=== PATIENT | male | born 1950 | race Caucasian/White ===

== ENCOUNTER 2022-05-24 16:04 | Inpatient (IN) | payer OTHER, SELFPAY ==
--- NOTE | ~2022-05-24 | CT_ITS ---
EXAMINATION: CT ABDOMEN AND PELVIS WITHOUT CONTRAST CLINICAL INFORMATION: Abdominal pain. Question is medial COMPARISON: None TECHNIQUE: Multidetector volumetric imaging was performed from the superior aspect of the liver through the pubic symphysis. Sagittal and coronal reformatted images were obtained on the technologist's workstation. This CT examination was performed using dose optimization techniques as appropriate, variously including the following: *Automated exposure control *Adjustment of mA and/or kV according to patient size (this includes techniques or standardized protocols for targeted exams where dose is matched to indication/reason for exam; i.e. extremities or head) *Use of iterative reconstruction technique DLP: 688 mGy-cm FINDINGS: LUNG BASES: The lung bases are clear. The heart size is normal. LIVER, GALLBLADDER, AND BILIARY TREE: The liver is normal in size, shape, and attenuation. No focal hepatic lesion or biliary ductal dilatation is present. The gallbladder is not visualized likely removed. There are postsurgical changes in the gloria hepatis. PANCREAS: Unremarkable. SPLEEN: Unremarkable. ADRENAL GLANDS: Unremarkable. KIDNEYS AND URETERS: The left kidney is small measuring 7.6 cm but normal cortex. The right kidney is 11 cm in length. There is normal cortical thickness. No radiopaque calculi are hydronephrosis seen. Mild bilateral perinephric stranding is seen. BLADDER: The bladder is contracted GASTROINTESTINAL TRACT: There is scattered stool and gas seen throughout the colon with moderate soft tissue mass involving the ascending colon and pericolic fat stranding however limited due to lack of IV contrast. In the right paracolic gutter there is a soft tissue density measuring 2.7 x 2.2 cm and 3.9 Hounsfield units likely a small seroma from previous intervention there are punctate small lymph nodes seen in the right paracolic gutter. The small bowel loops are prominent with air-fluid levels likely secondary low-grade obstruction at the ileocecal junction and the proximal ascending colon. No free air or free fluid seen. ABDOMINAL WALL: There is midline and para midline anterior epigastric abdominal wall hernia containing fat. LYMPH NODES: There are numerous mesenteric lymph nodes seen in right paracolic region the largest soft tissue mass/lymph node measures 3.3 x 2.1 cm axial image 44/3 and slightly smaller lymph node measures 1.8 cm. VASCULAR: Unremarkable. PELVIC VISCERA: Unremarkable. OSSEOUS STRUCTURES: There is a hardware along the right acetabulum from previous fracture repair. No aggressive lytic or sclerotic process seen. CT/CT abdomen pelvis wo IV con IMPRESSION: Postsurgical changes in the right gloria hepatis and right diaphragmatic alfredo likely from lymph node dissection. Correlate with clinical exam. The gallbladder is not visualized likely removed.. There is a moderate size mass or filling defect involving a long segment of right colon with paracolic lymphadenopathy and soft tissue mass. There is a focal paracolic collection likely a seroma from old intervention. The exam is limited due to lack of oral and IV contrast. Fleischner guidelines were followed.
--- NOTE | ~2022-05-24 | FL_ITS ---
PROCEDURE: XR BARIUM ENEMA CLINICAL INFORMATION: Mild obstruction. COMPARISON: None TECHNIQUE: A KUB was obtained. Subsequently a double contrast barium enema was performed retrogradely following insertion of a balloon inflated rectal catheter. FINDINGS: On KUB there are multiple dilated small bowel loops with air-fluid levels. No free air suspected. There are postsurgical mildred in the epigastric region from previous intervention. Following retrograde administration of barium there is good distention of the entire colon to the level of cecum with a few scattered diverticuli seen in descending and ascending colon. There is a long segment of mural thickening and mucosal irregularity/apple core lesion involving the proximal ascending colon just beyond the cecum suspicious and suggestive of tumor. There is proximal small bowel dilation likely low-grade obstruction. No retrograde opacification of terminal ileum or appendix seen. FLUOROSCOPY TIME: 3.1 minutes DOSE AREA PRODUCT: 167 uGy-m2 (microgray-meter squared) FL/FL barium enema IMPRESSION: Abnormal long segment of proximal ascending colon suggestive of underlying lesion with moderate narrowing and small bowel distention secondary to obstruction. Recommend endoscopy and surgical evaluation. Scattered colonic diverticulosis without diverticulitis.
--- NOTE | ~2022-05-24 | XR_ITS ---
EXAMINATION: XR ABDOMEN KUB CLINICAL INDICATION: Worst abdominal pain COMPARISON: CT from earlier today TECHNIQUE: AP view of the abdomen. FINDINGS: There are multiple mildly to moderately dilated gas-filled loops of small bowel throughout the abdomen, with only scattered gas in the colon, suspicious for a degree of small bowel obstruction. Numerous clips are noted in the upper right abdomen. No gross evidence of free air though evaluation is limited with supine positioning. Plate and screw fixation hardware and additional screw noted in the right pelvis. XR/XR KUB IMPRESSION: Multiple mildly to moderately dilated gas-filled loops of small bowel, suspicious for a degree of small bowel obstruction.
--- NOTE | ~2022-05-24 | XR_ITS ---
EXAMINATION: XR CHEST CLINICAL INFORMATION: Question pneumonia COMPARISON: None TECHNIQUE: Frontal view of the chest was obtained. FINDINGS: The lungs are clear. No airspace consolidation, pleural effusion, or pneumothorax. The cardiomediastinal silhouette is within normal limits. No acute osseous injury. Chronic/healed posterolateral right eighth and ninth rib fracture deformities noted. XR/XR chest 1V IMPRESSION: No acute pulmonary disease.
[2022-05-24 16:15] VITALS: BP 156/87; PULSE 87; RESP 16; TEMP 36.8; O2SAT 95; BMI 28.8
--- NOTE | 2022-05-24 16:23 | ED.ABDPAIN ---
HPI - Abdominal Pain General Chief Complaint: Abdominal Pain Stated Complaint: ABD PAIN AND SWELLING PER EMS Time Seen by Provider: 05/24/22 16:21 Source: patient Mode of arrival: EMS Limitations: no limitations History of Present Illness HPI narrative: Patient is status post liver transplant 7 years ago come here for diffuse abdominal pain and swelling for last 3 days today had some nausea and vomited once feels bloated no fever no chills no urinary complaints patient had loose bowel today does not feel hungry no fever or chills patient was seen by liver transplant team on 04/29 workup was stable and transplant in good shape. Related Data Home Medications Medication Instructions Recorded Confirmed amlodipine 10 mg tablet 1 tab PO DAILY 05/24/22 05/24/22 dulaglutide 0.75 mg/0.5 mL 0.75 mg subcut MEJIAS@0900 05/24/22 05/24/22 subcutaneous pen injector (Trulicity) ergocalciferol (vitamin D2) 1,250 1 cap PO TH@0900 05/24/22 05/24/22 mcg (50,000 unit) capsule insulin glargine 100 unit/mL (3 24 unit subcut BID 05/24/22 05/24/22 mL) subcutaneous pen (Lantus Solostar U-100 Insulin) metoprolol tartrate 25 mg tablet 1 tab PO BID 05/24/22 05/24/22 omeprazole 20 mg capsule,delayed 1 cap PO DAILY@0630 05/24/22 05/24/22 release tacrolimus 1 mg capsule, 1 cap PO BID 05/24/22 05/24/22 immediate-release tamsulosin 0.4 mg capsule 1 cap PO BEDTIME 05/24/22 05/24/22 Allergies Allergy/AdvReac Type Severity Reaction Status Date / Time No Known Allergies Allergy Verified 05/24/22 16:32 Review of Systems Review of Systems Yes all other systems are reviewed and are negative PMFSH Social History Social History Advance Directives: No Advance Directives Information Provided: No Physical Exam ED Vital Signs: Vital Signs - 24 hr 05/24/22 16:15 05/24/22 17:35 05/24/22 19:04 Temperature 98.3 F 98.4 F Pulse Rate 87 87 80 Respiratory Rate 16 16 16 Blood Pressure 156/87 H 129/64 124/65 Pulse Oximetry 95 98 98 Oxygen Delivery Method Room Air Room Air Room Air BMI result Body Mass Index 28.8 Appearance: Alert. Oriented X3. No acute distress. Eyes: PERRLA, No Nystagmus ENT: Pharynx normal. Oral Mucosa moist Neck: Normal inspection. Neck supple. CVS: Normal heart rate and rhythm. Pulses normal. Respiratory: No respiratory distress. Equal air entry bilateral, no wheezing/rales/rhonchi Abdomen: Soft gaseous distended diffuse discomfort no focal tenderness no rebound tenderness Bowel sounds are sluggish, no mass palpable, no CVA tenderness Skin: Skin warm and dry. Normal skin color. Normal skin turgor. Extremities: No lower extremity edema. No calf tenderness Neuro: Oriented X 3. No motor deficit. Medical Decision Making Medical Decision Making [facility] Narrative: . Diffuse abdominal pain with leukocytosis elevated lactic acid level of 2.9 elevated creatinine of 3.05 with nausea and vomiting CT scan the abdomen showed Postsurgical changes in the right gloria hepatis and right diaphragmatic alfredo likely from lymph node dissection. Correlate with clinical exam. The gallbladder is not visualized likely removed.. ? There is a moderate size mass or filling defect involving a long segment of right colon with paracolic lymphadenopathy and soft tissue mass. There is a focal paracolic collection likely a seroma from old intervention. The exam is limited due to lack of oral and IV contrast. Started on IV Zosyn IV fluids were given. Admit for further evaluation by surgery and Medicine Lab Data [facility] Lab Attestation statement: I reviewed the patient's lab results. 05/24/22 16:37 05/24/22 16:37 Labs: Lab Results 05/24/22 05/24/22 05/24/22 Range/Units 16:37 16:37 16:37 WBC 20.4 H (4.8-10.8) X10*3/uL RBC 4.93 (4.60-5.80) X10*6/uL Hgb 14.1 (14.0-18.0) g/dl Hct 42.0 (42.0-52.0) % MCV 85.2 (80.0-98.0) fL MCH 28.6 (27.0-33.0) pg MCHC 33.6 (31.0-36.0) g/dl RDW 13.2 (11.0-16.0) % Plt Count 287 (160-400) X10*3/uL MPV 9.6 (9.4-12.4) fL Immature Gran % (Auto) 0.5 H (0.0-0.4) % Neut % (Auto) 88.7 H (45-73) % Lymph % (Auto) 7.3 L (20-40) % Menard % (Auto) 3.1 (2-11) % Eos % (Auto) 0.2 (0-4) % Baso % (Auto) 0.2 (0-2) % Lymph # (Auto) 1.5 (1.2-4.9) X10*3/uL Menard # (Auto) 0.6 (0.1-1.2) X10*3/uL Eos # (Auto) 0.0 (0.0-0.4) X10*3/uL Baso # (Auto) 0.0 (0.0-0.2) X10*3/uL Abs Immat Gran (auto) 0.11 H (0.00-0.03) X10*3/uL Absolute Neuts (auto) 18.1 H (2.0-8.3) x10*3/uL Absolute Nucleated RBC 0.000 (0.0-0.012) X10*3/uL Nucleated RBC % (auto) 0.0 (0.0-0.2) /100WBC PT 11.0 (10.0-13.1) SEC INR 1.0 (0.9-1.1) Sodium 140 (135-145) mmol/L Potassium 3.8 (3.3-5.1) mmol/L Chloride 106 (96-108) mmol/L Carbon Dioxide 23 (22-29) mmol/L Anion Gap 15 (12-20) BUN 25 H (9-16) mg/dL Creatinine 3.05 H (0.5-1.4) mg/dL Estim Creat Clear Calc 24.0 Estimated GFR 20 Random Glucose 229 H (60-115) mg/dL Lactic Acid (0.5-2.0) mmol/L Lactic Acid F/U @ 2Hr (0.5-2.0) mmol/L Calcium 9.2 (8.4-10.2) mg/dL Magnesium 2.6 (1.6-2.6) mg/dL Total Bilirubin 0.8 (0.0-1.0) mg/dL AST 11 (5-37) U/L ALT 6 (0-40) U/L Alkaline Phosphatase 106 (39-117) U/L Total Protein 7.2 (6.5-8.0) g/dL Albumin 4.0 (3.5-5.0) g/dL Lipase 10 (8-78) U/L COVID-19 (ELLA) (Negative) COVID-19 Clin Com 05/24/22 05/24/22 05/24/22 Range/Units 16:37 16:50 19:03 WBC (4.8-10.8) X10*3/uL RBC (4.60-5.80) X10*6/uL Hgb (14.0-18.0) g/dl Hct (42.0-52.0) % MCV (80.0-98.0) fL MCH (27.0-33.0) pg MCHC (31.0-36.0) g/dl RDW (11.0-16.0) % Plt Count (160-400) X10*3/uL MPV (9.4-12.4) fL Immature Gran % (Auto) (0.0-0.4) % Neut % (Auto) (45-73) % Lymph % (Auto) (20-40) % Menard % (Auto) (2-11) % Eos % (Auto) (0-4) % Baso % (Auto) (0-2) % Lymph # (Auto) (1.2-4.9) X10*3/uL Menard # (Auto) (0.1-1.2) X10*3/uL Eos # (Auto) (0.0-0.4) X10*3/uL Baso # (Auto) (0.0-0.2) X10*3/uL Abs Immat Gran (auto) (0.00-0.03) X10*3/uL Absolute Neuts (auto) (2.0-8.3) x10*3/uL Absolute Nucleated RBC (0.0-0.012) X10*3/uL Nucleated RBC % (auto) (0.0-0.2) /100WBC PT (10.0-13.1) SEC INR (0.9-1.1) Sodium (135-145) mmol/L Potassium (3.3-5.1) mmol/L Chloride (96-108) mmol/L Carbon Dioxide (22-29) mmol/L Anion Gap (12-20) BUN (9-16) mg/dL Creatinine (0.5-1.4) mg/dL Estim Creat Clear Calc Estimated GFR Random Glucose (60-115) mg/dL Lactic Acid 2.9 H* (0.5-2.0) mmol/L Lactic Acid F/U @ 2Hr 0.8 (0.5-2.0) mmol/L Calcium (8.4-10.2) mg/dL Magnesium (1.6-2.6) mg/dL Total Bilirubin (0.0-1.0) mg/dL AST (5-37) U/L ALT (0-40) U/L Alkaline Phosphatase (39-117) U/L Total Protein (6.5-8.0) g/dL Albumin (3.5-5.0) g/dL Lipase (8-78) U/L COVID-19 (ELLA) Negative (Negative) COVID-19 Clin Com See Note Radiology Impression Discussion of test interpretation with radiology: I have reviewed the radiologist's reading. Radiologist Impression: Postsurgical changes in the right gloria hepatis and right diaphragmatic alfredo likely from lymph node dissection. Correlate with clinical exam. The gallbladder is not visualized likely removed.. ? There is a moderate size mass or filling defect involving a long segment of right colon with paracolic lymphadenopathy and soft tissue mass. There is a focal paracolic collection likely a seroma from old intervention. The exam is limited due to lack of oral and IV contrast. Medications Administered Generic Name Dose Route Start Last Admin Trade Name Freq PRN Reason Stop Dose Admin Heparin Sodium (Porcine) 5,000 unit 05/24/22 23:00 05/24/22 23:39 Heparin Sodium,Porcine 5,000 Unit/Ml Vial SUBCUT 5,000 unit Q12H FINESSE Administration Sodium Chloride 3 ml 05/25/22 00:00 05/24/22 23:39 0.9 % Sodium Chloride Flush 3 Ml Syringe IVFLUSH 3 ml QSHIFT FINESSE Administration Tacrolimus 1 mg 05/24/22 22:45 05/24/22 23:39 Tacrolimus 1 Mg Capsule PO 1 mg BID FINESSE Administration Discontinued Medications Generic Name Dose Route Start Last Admin Trade Name Drea PRN Reason Stop Dose Admin Sodium Chloride 1,000 mls @ 999 mls/hr 05/24/22 16:33 05/24/22 18:04 Ns IV 05/24/22 17:33 Infused .Q1H1M ONE Infusion Piperacillin Sod/Tazobactam 50 mls @ 100 mls/hr 05/24/22 17:21 05/24/22 18:04 Sod 3.375 gm/ Sodium Chloride IV 05/24/22 17:50 Infused ONCE ONE Infusion Sodium Chloride 1,000 mls @ 999 mls/hr 05/24/22 20:42 05/24/22 20:46 Ns IV 05/24/22 21:42 999 mls/hr .Q1H1M ONE Administration Morphine Sulfate 4 mg 05/24/22 16:35 05/24/22 17:12 Morphine Sulfate 4 Mg/Ml Cartridge IVPUSH 05/24/22 16:36 4 mg ONCE ONE Administration Protocol Ondansetron HCl 4 mg 05/24/22 16:35 05/24/22 17:12 Ondansetron Hcl 4 Mg/2 Ml Vial IVPUSH 05/24/22 16:36 4 mg ONCE ONE Administration Discharge Plan Discharge Clinical Impression: Abdominal pain, Leukocytosis, Acidosis, lactic Patient Disposition: Admitted As Inpatient
[2022-05-24 16:47] LABS: MANUAL DIFF FLAG NO
[2022-05-24 16:48] LABS: Basophils Percent Auto 0.2 % (0-2); Eosinophils Percent Auto 0.2 % (0-4); Hemoglobin 14.1 g/dl (14.0-18.0); Imm Gran Abs Auto 0.11 X10*3/uL (0.00-0.03); Imm Gran Pct Auto 0.5 % (0.0-0.4); Lymphocytes Absolute Auto 1.5 X10*3/uL (1.2-4.9); Lymphocytes Percent Auto 7.3 % (20-40); Mean Corpuscular HGB Conc 33.6 g/dl (31.0-36.0); Mean Corpuscular Hemoglobin 28.6 pg (27.0-33.0); Mean Corpuscular Volume 85.2 fL (80.0-98.0); Mean Platelet Volume 9.6 fL (9.4-12.4); Monocytes Absolute Auto 0.6 X10*3/uL (0.1-1.2); Monocytes Percent Auto 3.1 % (2-11); Neutrophils Absolute Auto 18.1 x10*3/uL (2.0-8.3); Neutrophils Percent Auto 88.7 % (45-73); Platelet Count 287 X10*3/uL (160-400); Red Blood Count 4.93 X10*6/uL (4.60-5.80); Red Cell Distribution Width 13.2 % (11.0-16.0); White Blood Count 20.4 X10*3/uL (4.8-10.8)
[2022-05-24 17:08] LABS: Alanine Aminotransferase 6 U/L (0-40); Alkaline Phosphatase 106 U/L (39-117); Anion Gap 15 (12-20); Aspartate Amino Transferase 11 U/L (5-37); Bilirubin Total 0.8 mg/dL (0.0-1.0); Blood Urea Nitrogen 25 mg/dL (9-16); Calcium 9.2 mg/dL (8.4-10.2); Carbon Dioxide 23 mmol/L (22-29); Chloride 106 mmol/L (96-108); Estimated Glomerular Filt Rate 20; Glucose Random 229 mg/dL (60-115); Lipase 10 U/L (8-78); Magnesium 2.6 mg/dL (1.6-2.6); Potassium 3.8 mmol/L (3.3-5.1); Sodium 140 mmol/L (135-145); Total Protein 7.2 g/dL (6.5-8.0)
[2022-05-24] MEDS: ondansetron HCL 4 MG/2 ML VIAL IVPUSH (17:12)
[2022-05-24] MEDS: Morphine Sulfate 4 MG/ML CARTRIDGE IVPUSH (17:12)
[2022-05-24] MEDS: 0.9 % Sodium Chloride 1,000 ML 999 ML IV ×2 (17:12→20:46)
[2022-05-24 17:23] LABS: COVID-19 Test Negative (Negative); IDNOW Serial# BCCEAD1C
--- NOTE | 2022-05-24 17:34 | MHC.EDTECH ---
PATIENT VITALS SIGN TAKEN AND BLOOD CULTURE DRAWN AND SEND TO LAB .
[2022-05-24 17:35] VITALS: BP 129/64; PULSE 87; RESP 16; TEMP 36.9; O2SAT 98
[2022-05-24] MEDS: Piperacillin Sodium/Tazobactam 3.375 GM in 0.9 % Sodium Chloride 50 ML IV (17:36)
[2022-05-24 17:47] LABS: Lactic Acid 2.9 mmol/L (0.5-2.0)
[2022-05-24 18:45] LABS: Reflex Lactate? Lactic Acid Added
--- NOTE | 2022-05-24 18:49 | PHA.MEDREC ---
Pharmacy Consult ? Medication Reconciliation Pharmacy has completed the medication reconciliation.
[2022-05-24 19:04] VITALS: BP 124/65; PULSE 80; RESP 16; O2SAT 98
[2022-05-24 19:24] LABS: ~Lactic Acid-LAB USE ONLY 0.8 mmol/L (0.5-2.0)
--- NOTE | 2022-05-24 20:42 | PC.NURSE ---
this nurse assumed care of pt @ 1900. blood work obtained. pt resting comfortably on stretcher with no new needs at this time
[2022-05-24] MEDS: Heparin Sodium,Porcine 5,000 UNIT/ML VIAL 5000 UNIT SUBCUT (23:39)
[2022-05-24] MEDS: 0.9 % Sodium Chloride Flush 3 ML SYRINGE IVFLUSH (23:39)
[2022-05-24] MEDS: Tacrolimus 1 MG CAPSULE PO (23:39)
--- NOTE | 2022-05-24 23:56 | PC.NURSE ---
pt medicated according to jun. pt brought to xray for imaging. pt reported pain 8/10 at this time. awaiting for pt to come back from xray to medicate for pain
[2022-05-25] VITALS (7 sets, daily range): BP systolic 120–157; BP diastolic 50–74; PULSE 84–90; RESP 14–20; TEMP 36.6–37.2; O2SAT 94–96
[2022-05-25] MEDS: Morphine Sulfate 4 MG/ML CARTRIDGE IVPUSH ×5 (00:03→23:03)
--- NOTE | 2022-05-25 03:12 | PM.IMHP ---
History of Present Illness Date of Service: 05/24/22 Chief Complaint: abd pain 71-year-old male with past medical history of liver transplant to alcohol abuse 7 years ago, hypertension, diabetes, GERD, BPH presents the hospital with complaints of abdominal pain. He reports that abdominal pain is been going on for several days but worsened today. He reports the abdominal pain to be diffuse, and the pain sometimes moves around in his belly, pain is 10/10, is associated with nausea and an episode of vomiting in the ambulance. Patient reports no fever no chills, worse with eating, no relieving factors. On arrival to the ED patient hemodynamically stable with no significant abnormal vitals Labs are significant for WBC count of 12.2, hemoglobin of 13.2, BUN of 25, creatinine of 3.05 with no baseline for comparison, lactic acid of 2.9 improved after IV fluids, UA negative CT of the abdomen pelvic shows postsurgical changes in the right border hepatocytes and right diaphragmatic alfredo likely from lymph node dissection, there is a moderate size mass or filling defect involving a long segment of right colon with pericolic lymphadenopathy and soft tissue mass, focal pericolic collection likely a seroma from old intervention After having a chest x-ray done patient then developed worsening pain with distension, a KUB was done which showed multiple mildly to moderately dilated gas-filled loops of small bowel suspicious for small bowel obstruction Patient reports last bowel movement was the day prior to presentation. Patient started on IV antibiotics he will be admitted for further management Review of Systems Review of Systems: Yes all other systems are reviewed and are negative [facility] Medical History (Updated 05/25/22 @ 06:30 by Becka David MD) Diabetes GERD (gastroesophageal reflux disease) History of BPH Hypertension Surgical History (Updated 05/25/22 @ 06:29 by Becka David MD) History of liver transplant Social History (Updated 05/25/22 @ 06:29 by Becka David MD) Alcohol intake: former Patient Tobacco Use Status: Former Tobacco user Use of substances other than those prescribed or required for medical reasons: No Advance Directives: No Advance Directives Information Provided: No Meds Allergies Allergy/AdvReac Type Severity Reaction Status Date / Time No Known Allergies Allergy Verified 05/24/22 16:32 Active Medications: Current Medications Acetaminophen (Acetaminophen 325 Mg Tablet) 650 mg PO Q6H PRN PRN Reason: Pain, Mild (Pain Scale 1-3) Docusate Sodium (Docusate Sodium 100 Mg Capsule) 100 mg PO DAILY PRN PRN Reason: Constipation Ergocalciferol (Ergocalciferol (Vitamin D2) 1,250 Mcg Capsule) 1,250 mcg PO TH@0900 [facility] Heparin Sodium (Porcine) (Heparin Sodium,Porcine 5,000 Unit/Ml Vial) 5,000 unit SUBCUT Q12H [facility] Last Admin: 05/24/22 23:39 Dose: 5,000 unit Insulin Glargine (Insulin Glargine,Hum.Rec.Anlog 100 Unit/Ml 10 Ml Vial) 24 unit SUBCUT BID [facility] Morphine Sulfate (Morphine Sulfate 4 Mg/Ml Cartridge) 4 mg IVPUSH Q4H PRN; Protocol PRN Reason: Pain, Severe (Pain Scale 7-10) Last Admin: 05/25/22 00:03 Dose: 4 mg Ondansetron HCl (Ondansetron Hcl 4 Mg/2 Ml Vial) 4 mg IVPUSH Q8H PRN PRN Reason: Nausea and Vomiting Pharmacy Consult (Consult Rx Perform Med Rec) 1 each MISCELLANE ONCE PRN PRN Reason: Consult order Sodium Chloride (0.9 % Sodium Chloride Flush 3 Ml Syringe) 3 ml IVFLUSH QSHIFT [facility] Last Admin: 05/24/22 23:39 Dose: 3 ml Tacrolimus (Tacrolimus 1 Mg Capsule) 1 mg PO BID [facility] Last Admin: 05/24/22 23:39 Dose: 1 mg Home Medications Medication Instructions Recorded Confirmed Last Taken Type amlodipine 10 mg tablet 1 tab PO DAILY 05/24/22 05/24/22 05/24/22 09:00 History dulaglutide 0.75 mg/0.5 mL 0.75 mg subcut MEJIAS@0900 05/24/22 05/24/22 05/18/22 History subcutaneous pen injector (Trulicity) ergocalciferol (vitamin D2) 1,250 1 cap PO TH@0900 05/24/22 05/24/22 05/22/22 History mcg (50,000 unit) capsule insulin glargine 100 unit/mL (3 24 unit subcut BID 05/24/22 05/24/22 05/23/22 History mL) subcutaneous pen (Lantus Solostar U-100 Insulin) metoprolol tartrate 25 mg tablet 1 tab PO BID 05/24/22 05/24/22 05/24/22 09:00 History omeprazole 20 mg capsule,delayed 1 cap PO DAILY@0630 05/24/22 05/24/22 05/24/22 09:00 History release tacrolimus 1 mg capsule, 1 cap PO BID 05/24/22 05/24/22 05/24/22 09:00 History immediate-release tamsulosin 0.4 mg capsule 1 cap PO BEDTIME 05/24/22 05/24/22 05/23/22 History Physical Exam Vital Signs and Narrative: Vital Signs: Last Vital Signs Temp 98.4 F 05/25/22 00:03 Pulse 87 05/25/22 00:03 Resp 20 05/25/22 00:03 BP 120/57 L 05/25/22 00:03 Pulse Ox 96 05/25/22 00:03 O2 Del Method 05/25/22 00:03 BMI result Body Mass Index 28.8 Const: General: cooperative and no acute distress Orientation/consciousness: patient oriented x3 Eyes: General: appearance normal, both eyes and all related structures Resp: Effort & Inspection: normal respiratory effort Auscultation: clear to auscultation bilaterally Cardio: Rate: regular rate Rhythm: regular rhythm GI: Other: Abdomen is soft but tender, no rebound or guarding Palpation (GI): Soft to palpation Auscultation: normal bowel sounds Skin: General skin exam: no rashes or lesions noted Neuro: General: patient oriented x3 Cognition (Neuro): normal cognition Extrem: General: Yes normal to inspection and Yes no pedal edema Results Labs 05/24/22 16:37 05/24/22 16:37 Labs: Laboratory Results - last 24 hr 05/24/22 05/24/22 05/24/22 16:37 16:37 16:37 MCV 85.2 MCH 28.6 MCHC 33.6 RDW 13.2 Plt Count 287 MPV 9.6 Immature Gran % (Auto) 0.5 H Neut % (Auto) 88.7 H Lymph % (Auto) 7.3 L [place] % (Auto) 3.1 Eos % (Auto) 0.2 Baso % (Auto) 0.2 Lymph # (Auto) 1.5 [place] # (Auto) 0.6 Eos # (Auto) 0.0 Baso # (Auto) 0.0 Abs Immat Gran (auto) 0.11 H Absolute Neuts (auto) 18.1 H Absolute Nucleated RBC 0.000 Nucleated RBC % (auto) 0.0 PT 11.0 INR 1.0 Anion Gap 15 Estim Creat Clear Calc 24.0 Estimated GFR 20 Random Glucose 229 H Lactic Acid Lactic Acid F/U @ 2Hr Calcium 9.2 Magnesium 2.6 Total Bilirubin 0.8 AST 11 ALT 6 Alkaline Phosphatase 106 Total Protein 7.2 Albumin 4.0 Lipase 10 COVID-19 ([facility]) COVID-19 Clin Com 05/24/22 05/24/22 05/24/22 16:37 16:50 19:03 MCV MCH MCHC RDW Plt Count MPV Immature Gran % (Auto) Neut % (Auto) Lymph % (Auto) [place] % (Auto) Eos % (Auto) Baso % (Auto) Lymph # (Auto) [place] # (Auto) Eos # (Auto) Baso # (Auto) Abs Immat Gran (auto) Absolute Neuts (auto) Absolute Nucleated RBC Nucleated RBC % (auto) PT INR Anion Gap Estim Creat Clear Calc Estimated GFR Random Glucose Lactic Acid 2.9 H* Lactic Acid F/U @ 2Hr 0.8 Calcium Magnesium Total Bilirubin AST ALT Alkaline Phosphatase Total Protein Albumin Lipase COVID-19 ([facility]LLA) Negative COVID-19 Clin Com See Note Imaging Radiologist's Impressions: Impressions Abdomen/Pelvis CT 05/24/22 17:14 IMPRESSION: Postsurgical changes in the right gloria hepatis and right diaphragmatic alfredo likely from lymph node dissection. Correlate with clinical exam. The gallbladder is not visualized likely removed.. There is a moderate size mass or filling defect involving a long segment of right colon with paracolic lymphadenopathy and soft tissue mass. There is a focal paracolic collection likely a seroma from old intervention. The exam is limited due to lack of oral and IV contrast. Fleischner guidelines were followed. Chest X-Ray 05/24/22 20:53 IMPRESSION: No acute pulmonary disease. KUB X-Ray 05/24/22 23:45 IMPRESSION: Multiple mildly to moderately dilated gas-filled loops of small bowel, suspicious for a degree of small bowel obstruction. Assessment and Plan (1) Abdominal pain: Status: Acute (2) Intraabdominal mass: Status: Acute (3) Acidosis, lactic: Status: Acute (4) Small bowel obstruction: Status: Acute Plan This is a 71-year-old male with past medical history of liver cirrhosis status post transplant 7 years ago presents to the hospital with complaints of abdominal pain, nausea and vomiting # abdominal pain - possibly multifactorial in the setting of small-bowel obstruction as well as evidence of intra-abdominal mass concerning for seroma per CT - at this time will keep NPO - will treat with IV antibiotics, IV fluids - general surgery consulted - follow cultures #lactic acidosis - secondary to above - which she with IV fluids - trending down # JOVANNY? - unclear if he has baseline kidney disease - attempting to obtain documents and past medical history from [facility] where he usually refers - will follow BMP - continue IV fluids # hypertension - stable - continue antihypertensives # diabetes - low-dose sliding scale insulin - continue home insulin # GERD - continue omeprazole # history of liver transplant -continue tacrolimus at this time most of his medications have been on hold except for tacrolimus given the small obstruction until further evaluated by surgery DVT prophylaxis heparin subQ Given patient's need for IV antibiotics, as well as small-bowel obstruction patient require minimum 2 night inpatient hospital stay for further management and monitoring Time Spent With Patient Time: Total time managing care of this patient today ____ minutes. Quality Stroke Does the patient have a stroke diagnosis?: No VTE Prior VTE?: No VTE Risk Level:: Medical - moderate - high VTE Device Contraindication: Treatment Not Indicated VTE Drug Contraindication: N/A - Med Ordered
[2022-05-25 04:28] LABS: Appearance Urine Cloudy; Color Urine Yellow; Glucose Urine UA Negative (Negative); Leukocyte Esterase Urine Negative (Negative); Nitrite Urine Negative (Negative); PH 5.5 (5.0-9.0); UMIC TRIGGER UACC YES; Urine Blood Negative (Negative); Urine Ketones Trace mg/dL (Negative); Urine Protein 300 (3+) mg/dL (Neg-Trace)
[2022-05-25 04:33] LABS: Bacteria Urine None Seen (None Seen); Hyaline Casts Urine 0-2 /LPF (0-2); RBC Urine 0-2 /HPF (0-2); WBC Urine 0-5 /HPF (0-5)
[2022-05-25 05:57] LABS: MANUAL DIFF FLAG NO
[2022-05-25 05:59] LABS: Basophils Percent Auto 0.2 % (0-2); Eosinophils Absolute Auto 0.1 X10*3/uL (0.0-0.4); Eosinophils Percent Auto 0.7 % (0-4); Hematocrit 39.6 % (42.0-52.0); Hemoglobin 13.2 g/dl (14.0-18.0); Imm Gran Abs Auto 0.05 X10*3/uL (0.00-0.03); Imm Gran Pct Auto 0.4 % (0.0-0.4); Lymphocytes Absolute Auto 1.1 X10*3/uL (1.2-4.9); Lymphocytes Percent Auto 9.2 % (20-40); Mean Corpuscular HGB Conc 33.3 g/dl (31.0-36.0); Mean Corpuscular Hemoglobin 28.9 pg (27.0-33.0); Mean Corpuscular Volume 86.7 fL (80.0-98.0); Mean Platelet Volume 9.6 fL (9.4-12.4); Monocytes Absolute Auto 0.7 X10*3/uL (0.1-1.2); Monocytes Percent Auto 6.1 % (2-11); Neutrophils Absolute Auto 10.2 x10*3/uL (2.0-8.3); Neutrophils Percent Auto 83.4 % (45-73); Platelet Count 219 X10*3/uL (160-400); Red Blood Count 4.57 X10*6/uL (4.60-5.80); Red Cell Distribution Width 13.3 % (11.0-16.0); White Blood Count 12.2 X10*3/uL (4.8-10.8)
[2022-05-25 06:14] LABS: Anion Gap 14 (12-20); Blood Urea Nitrogen 31 mg/dL (9-16); Calcium 8.2 mg/dL (8.4-10.2); Carbon Dioxide 22 mmol/L (22-29); Chloride 111 mmol/L (96-108); Creatinine Clr Calc Pharmacy 26.4; Estimated Glomerular Filt Rate 23; Glucose Random 159 mg/dL (60-115); Potassium 3.9 mmol/L (3.3-5.1); Sodium 143 mmol/L (135-145)
--- NOTE | 2022-05-25 06:23 | PC.NURSE ---
pt reported to this rn 11/03 pain. pt medicated according to mar. pt provided with toothette oral swab to moisten mucosa. pt awake at this time resting on stretcher comfortably reports no new needs at this time
[2022-05-25] MEDS: Lactated Ringers 1,000 ML 100 ML IVCONT (06:50)
[2022-05-25 07:23] LABS: Glucose, Whole Blood 148 mg/dL (60-115)
--- NOTE | 2022-05-25 07:41 | PC.NURSE ---
THIS RN ASSUMED CARE OF THIS PT AT 0700. PT AWAKE IN BED, DENIES PAIN, VSS
--- NOTE | 2022-05-25 08:35 | PM.CNGS ---
History of Present Illness Consult details Consult date: 05/25/22 Reason for consult: abdominal pain Requesting physician: Jere Wheeler Narrative: 71-year-old male patient presenting with complaints of colicky abdominal pain associated with abdominal distension, nausea and vomiting. He has a past history of alcoholic liver disease and is status post liver transplant 7 years ago at [facility]. He denies any significant problems following the surgery and denies a prior history of bowel obstructions. The abdominal pain began approximately around Thanksgiving when he thought he initially had food poisoning. The abdominal pain was similar at that time but not as severe and seems to be associated with constipation followed by diarrhea. The current episode began several days ago but increased in severity over the last 24 hours. He reports waves of sharp pain felt throughout the abdomen. He has a known incisional hernia in the upper abdomen which also seems to be increased in size. Workup in the emergency department revealed a WBC of 20.4 and a lactate of 2.9. A CT abdomen and pelvis revealed postsurgical changes following liver transplantation. Small-bowel dilatation with air-fluid levels is noted throughout the abdomen down through the ileocecal valve. Also noted were soft tissue changes along the wall of the right colon and a soft tissue mass in the right gutter measuring 2.7 by 2.2 cm, likely a small seroma. Pericolic lymphadenopathy is also identified. He feels he underwent colonoscopy prior to the transplantation at least 7 years ago. Patient is admitted to the hospitalist service. Review of Systems Review of Systems: Yes all other systems are reviewed and are negative Constitutional: Constitutional: Denies chills, Denies fever(s), Denies headache(s), Reports poor appetite and Denies weakness ENT: Denies headache(s) Cardiovascular: Cardiovascular: Denies chest pain, Denies irregular heart rhythm, Denies palpitations and Denies dyspnea Respiratory: Respiratory: Denies cough, Denies excessive phlegm production and Denies dyspnea Gastrointestinal: Gastrointestinal: Reports abdominal pain, Reports bloating, Reports change in bowel habits, Reports constipation, Denies heartburn, Reports diarrhea, Reports nausea and Reports vomiting Comments: burping Genitourinary: Genitourinary: Denies difficulty urinating and Denies urinary frequency Musculoskeletal: Musculoskeletal: Denies back pain, Denies muscle weakness and Denies numbness Integumentary/Breasts: Skin/Breast: Denies changing lesions and Denies unusual bruising Neurologic: Denies headache(s), Denies numbness, Denies paresthesias and Denies weakness Psychiatric: Psychiatric: Denies anxiety and Denies depression Endocrine: Endocrine: Denies palpitations Hematologic/Lymphatic: Hematologic/Lymphatic: Denies lymphadenopathy [facility] Past Medical History Medical History Diabetes GERD (gastroesophageal reflux disease) History of BPH Hypertension Surgical History Surgical History History of liver transplant Social History Social History Alcohol intake: former Patient Tobacco Use Status: Former Tobacco user Use of substances other than those prescribed or required for medical reasons: No Advance Directives: No Advance Directives Information Provided: No Meds Allergies Allergy/AdvReac Type Severity Reaction Status Date / Time No Known Allergies Allergy Verified 05/24/22 16:32 Active Medications: Current Medications Acetaminophen (Acetaminophen 325 Mg Tablet) 650 mg PO Q6H PRN PRN Reason: Pain, Mild (Pain Scale 1-3) Dextrose (Dextrose 50 % 25 Gm/50 Ml Syringe) 25 gm IVPUSH Q15M PRN; Protocol PRN Reason: per Hypoglycemia Standing Ord. Docusate Sodium (Docusate Sodium 100 Mg Capsule) 100 mg PO DAILY PRN PRN Reason: Constipation Ergocalciferol (Ergocalciferol (Vitamin D2) 1,250 Mcg Capsule) 1,250 mcg PO TH@0900 [facility] Glucose (Glucose Gel 15 Gm Gel..Gram.) 15 gm PO Q15M PRN; Protocol PRN Reason: per Hypoglycemia Standing Ord. Heparin Sodium (Porcine) (Heparin Sodium,Porcine 5,000 Unit/Ml Vial) 5,000 unit SUBCUT Q12H [facility] Last Admin: 05/24/22 23:39 Dose: 5,000 unit Lactated Ringer's (Lr) 1,000 mls @ 100 mls/hr IVCONT .Q10H [facility] Last Admin: 05/25/22 06:50 Dose: 100 mls/hr Piperacillin Sod/Tazobactam (Sod 2.25 gm/ Sodium Chloride) 50 mls @ 100 mls/hr IV Q6H [facility] Insulin Glargine (Insulin Glargine,Hum.Rec.Anlog 100 Unit/Ml 10 Ml Vial) 24 unit SUBCUT BID [facility] Insulin Human Lispro (Insulin Lispro 100 Unit/Ml 3 Ml Vial) 0 unit SUBCUT QIDACHS [facility]; Protocol Last Admin: 05/25/22 07:44 Dose: Not Given Morphine Sulfate (Morphine Sulfate 4 Mg/Ml Cartridge) 4 mg IVPUSH Q4H PRN; Protocol PRN Reason: Pain, Severe (Pain Scale 7-10) Last Admin: 05/25/22 06:19 Dose: 4 mg Ondansetron HCl (Ondansetron Hcl 4 Mg/2 Ml Vial) 4 mg IVPUSH Q8H PRN PRN Reason: Nausea and Vomiting Pharmacy Consult (Consult Rx Perform Med Rec) 1 each MISCELLANE ONCE PRN PRN Reason: Consult order Sodium Chloride (0.9 % Sodium Chloride Flush 3 Ml Syringe) 3 ml IVFLUSH QSHIFT [facility] Last Admin: 05/25/22 08:23 Dose: Not Given Tacrolimus (Tacrolimus 1 Mg Capsule) 1 mg PO BID [facility] Last Admin: 05/24/22 23:39 Dose: 1 mg Home Medications Medication Instructions Recorded Confirmed Last Taken Type amlodipine 10 mg tablet 1 tab PO DAILY 05/24/22 05/24/22 05/24/22 09:00 History dulaglutide 0.75 mg/0.5 mL 0.75 mg subcut MEJIAS@0905/24/22 05/24/22 05/18/22 History subcutaneous pen injector (Trulicity) ergocalciferol (vitamin D2) 1,250 1 cap PO TH@0900 05/24/22 05/24/22 05/22/22 History mcg (50,000 unit) capsule insulin glargine 100 unit/mL (3 24 unit subcut BID 05/24/22 05/24/22 05/23/22 History mL) subcutaneous pen (Lantus Solostar U-100 Insulin) metoprolol tartrate 25 mg tablet 1 tab PO BID 05/24/22 05/24/22 05/24/22 09:00 History omeprazole 20 mg capsule,delayed 1 cap PO DAILY@0630 05/24/22 05/24/22 05/24/22 09:00 History release tacrolimus 1 mg capsule, 1 cap PO BID 05/24/22 05/24/22 05/24/22 09:00 History immediate-release tamsulosin 0.4 mg capsule 1 cap PO BEDTIME 05/24/22 05/24/22 05/23/22 History Physical Exam Vital Signs: Vital Signs: Last Vital Signs Temp 99.0 F 05/25/22 07:14 Pulse 84 05/25/22 07:14 Resp 16 05/25/22 07:14 BP 129/50 L 05/25/22 07:14 Pulse Ox 95 05/25/22 07:14 O2 Del Method 05/25/22 07:14 BMI result Body Mass Index 28.8 Const: General: cooperative and no acute distress Nutritional Appearance: well nourished Orientation/consciousness: patient oriented x3 Limitations: no limitations HEENT: Head: Yes normocephalic and Yes atraumatic Ears: hearing grossly normal bilaterally Resp: Effort & Inspection: normal respiratory effort, no audible wheezes, no cough and no respiratory distress Cardio: Jugular venous distension: no JVD GI: Inspection: Yes normal to inspection, Yes distended, Yes incision and Yes Abdominal panniculus present Palpation (GI): Soft to palpation, Tenderness to palpation present (GI) in the RUQ; with no rebound tenderness and Rovsing's sign negative, no guarding, not rigid and Hernia present ( Incisional hernia in upper abdomen chevron incision) Percussion: Yes tympanic to percussion Auscultation: normal bowel sounds Abdomen image: 1. 2. Skin: Other: Warm, dry, no rash Neuro: General: patient oriented x3 Extrem: General: Yes no clubbing, cyanosis or edema Results Labs 05/25/22 05:44 05/25/22 05:44 Labs: Abnormal lab results 05/24/22 05/24/22 05/24/22 Range/Units 16:37 16:37 16:37 WBC 20.4 H (4.8-10.8) X10*3/uL RBC (4.60-5.80) X10*6/uL Hgb (14.0-18.0) g/dl Hct (42.0-52.0) % Immature Gran % (Auto) 0.5 H (0.0-0.4) % Neut % (Auto) 88.7 H (45-73) % Lymph % (Auto) 7.3 L (20-40) % Lymph # (Auto) (1.2-4.9) X10*3/uL Abs Immat Gran (auto) 0.11 H (0.00-0.03) X10*3/uL Absolute Neuts (auto) 18.1 H (2.0-8.3) x10*3/uL Chloride (96-108) mmol/L BUN 25 H (9-16) mg/dL Creatinine 3.05 H (0.5-1.4) mg/dL POC Glucose (60-115) mg/dL Random Glucose 229 H (60-115) mg/dL Lactic Acid 2.9 H* (0.5-2.0) mmol/L Calcium (8.4-10.2) mg/dL Urine Protein (Neg-Trace) mg/dL 05/25/22 05/25/22 05/25/22 Range/Units 04:17 05:44 05:44 WBC 12.2 H (4.8-10.8) X10*3/uL RBC 4.57 L (4.60-5.80) X10*6/uL Hgb 13.2 L (14.0-18.0) g/dl Hct 39.6 L (42.0-52.0) % Immature Gran % (Auto) (0.0-0.4) % Neut % (Auto) 83.4 H (45-73) % Lymph % (Auto) 9.2 L (20-40) % Lymph # (Auto) 1.1 L (1.2-4.9) X10*3/uL Abs Immat Gran (auto) 0.05 H (0.00-0.03) X10*3/uL Absolute Neuts (auto) 10.2 H (2.0-8.3) x10*3/uL Chloride 111 H (96-108) mmol/L BUN 31 H (9-16) mg/dL Creatinine 2.78 H (0.5-1.4) mg/dL POC Glucose (60-115) mg/dL Random Glucose 159 H (60-115) mg/dL Lactic Acid (0.5-2.0) mmol/L Calcium 8.2 L D (8.4-10.2) mg/dL Urine Protein 300 (3+) H (Neg-Trace) mg/dL 05/25/22 Range/Units 07:13 WBC (4.8-10.8) X10*3/uL RBC (4.60-5.80) X10*6/uL Hgb (14.0-18.0) g/dl Hct (42.0-52.0) % Immature Gran % (Auto) (0.0-0.4) % Neut % (Auto) (45-73) % Lymph % (Auto) (20-40) % Lymph # (Auto) (1.2-4.9) X10*3/uL Abs Immat Gran (auto) (0.00-0.03) X10*3/uL Absolute Neuts (auto) (2.0-8.3) x10*3/uL Chloride (96-108) mmol/L BUN (9-16) mg/dL Creatinine (0.5-1.4) mg/dL POC Glucose 148 H (60-115) mg/dL Random Glucose (60-115) mg/dL Lactic Acid (0.5-2.0) mmol/L Calcium (8.4-10.2) mg/dL Urine Protein (Neg-Trace) mg/dL Short CBC 05/24/22 05/25/22 Range/Units 16:37 05:44 WBC 20.4 H 12.2 H (4.8-10.8) X10*3/uL Hgb 14.1 13.2 L (14.0-18.0) g/dl Hct 42.0 39.6 L (42.0-52.0) % Plt Count 287 219 (160-400) X10*3/uL BMP 05/24/22 05/25/22 16:37 05:44 Sodium 140 143 Potassium 3.8 3.9 Chloride 106 111 H Carbon Dioxide 23 22 BUN 25 H 31 H Creatinine 3.05 H 2.78 H Calcium 9.2 8.2 L D Liver Function 05/24/22 Range/Units 16:37 Total Bilirubin 0.8 (0.0-1.0) mg/dL AST 11 (5-37) U/L ALT 6 (0-40) U/L Alkaline Phosphatase 106 (39-117) U/L Albumin 4.0 (3.5-5.0) g/dL Urine 05/25/22 Range/Units 04:17 Urine Color Yellow Urine Appearance Cloudy Urine pH 5.5 (5.0-9.0) Ur Specific [place] 1.020 (1.005-1.025) Urine Protein 300 (3+) H (Neg-Trace) mg/dL Urine Glucose (UA) Negative (Negative) mg/dL All other labs normal. Imaging Additional studies: ? mass and adenopathy right colon Right gutter fluid collection: Assessment and Plan (1) Small bowel obstruction: Status: Acute (2) Intraabdominal mass: Status: Acute (3) Abdominal pain: Status: Acute (4) Leukocytosis: Status: Acute Plan 71-year-old male patient with a prior history of alcohol related liver disease, status post liver transplantation 7 years ago now with evidence of small-bowel obstruction with dilated loops of small bowel but no clear transition point. Patient also thought to have a right colon mass although this is difficult to say for sure given the non contrasted CT study. There does appear to be lymphadenopathy associated with the right colon which is suspicious for malignancy. Recommend GI consultation for possible colonoscopy, nasogastric tube if persistent nausea and vomiting. Should keep NPO With IV fluids until return of bowel function. Time Spent With Patient Time: Total time managing care of this patient today ____ minutes. Procedures Date of Service Date of Service: 05/25/22
--- NOTE | 2022-05-25 08:39 | PC.NURSE ---
REPORT GIVEN TO [facility]. PT WAS SEEN BY DR. JACOBS. PT WILL BE TRANSPORTED TO [facility] BY TRANSPORTER.
[2022-05-25] MEDS: Tacrolimus 1 MG CAPSULE PO ×2 (09:52→21:10)
[2022-05-25] MEDS: Piperacillin Sodium/Tazobactam 2.25 GM in 0.9 % Sodium Chloride 50 ML IV ×2 (09:57→18:29)
[2022-05-25 11:46] LABS: Glucose, Whole Blood 135 mg/dL (60-115)
--- NOTE | 2022-05-25 13:10 | P.CNGI_ITS ---
History of Present Illness Data of Consult Service Date: 05/25/22 Requesting physician: Jere Wheeler Primary Care Provider: Millie Coburn MD HPI Reason for consult: SBO ? R colon mass This is a 71-year-old gentleman with past medical history of alcoholic cirrhosis status post liver transplant 2016 (at [facility]) on tacrolimus, type 2 diabetes, hypertension, BPH, who presented to the hospital yesterday for abdominal pain, distension, nausea and vomiting and was found to have small bowel obstruction. Patient states that almost 2 months ago, he had a similar episode of abdominal pain, distention and nausea which went away within 1-2 days, and he attributed this to food poisoning. Then, 4 days ago, he started developing sharp abdominal pain again with worsening distension. Denies any nausea or vomiting prior to the day of admission. Was able to tolerate diet up until the day before. Then, yesterday morning, had significant increase in the severity of pain associated with nausea as well as 1 episode of vomiting, which he describes as bilious. Has not been able to pass any flatus or bowel movement for 3 days now. Apart from liver transplantation, no history of other abdominal surgeries. He thinks he had a colonoscopy in 2016 as part of pre transplant evaluation. No family history of colon cancer or advanced polyp. On presentation to the emergency room, he was noted to be vitally stable. Labs were significant for leukocytosis to 20.4 with Chem 7 showing severe JOVANNY creatinine of 3.05. He also had lactic acidosis to 2.9, which normalized after fluid resuscitation. CT abd/pelvis as below. [facility] [place] Past Medical History Medical History Diabetes GERD (gastroesophageal reflux disease) History of BPH Hypertension Surgical History Surgical History History of liver transplant Social History Social History Household Members: None Housing: Apartment Do you presently have visiting nurse or other home services: No Alcohol intake: former Patient Tobacco Use Status: Former Tobacco user Meds Allergies Allergy/AdvReac Type Severity Reaction Status Date / Time No Known Allergies Allergy Verified 05/24/22 16:32 Active Medications: Current Medications Acetaminophen (Acetaminophen 325 Mg Tablet) 650 mg PO Q6H PRN PRN Reason: Pain, Mild (Pain Scale 1-3) Dextrose (Dextrose 50 % 25 Gm/50 Ml Syringe) 25 gm IVPUSH Q15M PRN; Protocol PRN Reason: per Hypoglycemia Standing Ord. Docusate Sodium (Docusate Sodium 100 Mg Capsule) 100 mg PO DAILY PRN PRN Reason: Constipation Ergocalciferol (Ergocalciferol (Vitamin D2) 1,250 Mcg Capsule) 1,250 mcg PO TH@0900 [facility] Glucose (Glucose Gel 15 Gm Gel..Gram.) 15 gm PO Q15M PRN; Protocol PRN Reason: per Hypoglycemia Standing Ord. Heparin Sodium (Porcine) (Heparin Sodium,Porcine 5,000 Unit/Ml Vial) 5,000 unit SUBCUT Q12H [facility] Last Admin: 05/24/22 23:39 Dose: 5,000 unit Lactated Ringer's (Lr) 1,000 mls @ 100 mls/hr IVCONT .Q10H [facility] Last Admin: 05/25/22 06:50 Dose: 100 mls/hr Piperacillin Sod/Tazobactam (Sod 2.25 gm/ Sodium Chloride) 50 mls @ 100 mls/hr IV Q6H [facility] Insulin Glargine (Insulin Glargine,Hum.Rec.Anlog 100 Unit/Ml 10 Ml Vial) 24 unit SUBCUT BID [facility] Last Admin: 05/25/22 11:28 Dose: Not Given Insulin Human Lispro (Insulin Lispro 100 Unit/Ml 3 Ml Vial) 0 unit SUBCUT QIDACHS [facility]; Protocol Last Admin: 05/25/22 11:27 Dose: Not Given Morphine Sulfate (Morphine Sulfate 4 Mg/Ml Cartridge) 4 mg IVPUSH Q4H PRN; Protocol PRN Reason: Pain, Severe (Pain Scale 7-10) Last Admin: 05/25/22 09:53 Dose: 4 mg Ondansetron HCl (Ondansetron Hcl 4 Mg/2 Ml Vial) 4 mg IVPUSH Q8H PRN PRN Reason: Nausea and Vomiting Pharmacy Consult (Consult Rx Perform Med Rec) 1 each MISCELLANE ONCE PRN PRN Reason: Consult order Sodium Chloride (0.9 % Sodium Chloride Flush 3 Ml Syringe) 3 ml IVFLUSH QSHIFT [facility] Last Admin: 05/25/22 08:23 Dose: Not Given Tacrolimus (Tacrolimus 1 Mg Capsule) 1 mg PO BID [facility] Last Admin: 05/25/22 09:52 Dose: 1 mg Home Medications Medication Instructions Recorded Confirmed Last Taken Type amlodipine 10 mg tablet 1 tab PO DAILY 05/24/22 05/24/22 05/24/22 09:00 History dulaglutide 0.75 mg/0.5 mL 0.75 mg subcut MEJIAS@0900 05/24/22 05/24/22 05/18/22 History subcutaneous pen injector (Trulicity) ergocalciferol (vitamin D2) 1,250 1 cap PO TH@0900 05/24/22 05/24/22 05/22/22 History mcg (50,000 unit) capsule insulin glargine 100 unit/mL (3 24 unit subcut BID 05/24/22 05/24/22 05/23/22 History mL) subcutaneous pen (Lantus Solostar U-100 Insulin) metoprolol tartrate 25 mg tablet 1 tab PO BID 05/24/22 05/24/22 05/24/22 09:00 History omeprazole 20 mg capsule,delayed 1 cap PO DAILY@0630 05/24/22 05/24/22 05/24/22 09:00 History release tacrolimus 1 mg capsule, 1 cap PO BID 05/24/22 05/24/22 05/24/22 09:00 History immediate-release tamsulosin 0.4 mg capsule 1 cap PO BEDTIME 05/24/22 05/24/22 05/23/22 History Physical Exam Vital Signs: Vital Signs: Last Vital Signs Temp 98.5 F 05/25/22 09:20 Pulse 90 05/25/22 09:20 Resp 20 05/25/22 09:20 BP 157/74 H 05/25/22 09:20 Pulse Ox 96 05/25/22 09:20 O2 Del Method 05/25/22 09:20 BMI result Body Mass Index 28.8 Gen appear: Non toxic appearing HEENT: no icterus, no cervical lymphadenopathy Chest: No overt resp distress CVS: S1/S2, regular Abd: Soft, distended, markedly tender in RLQ> RUQ and periumbilical area Psych: Stable affect, answering questions appropriately Neuro: A/Ox3 noted to move all extremities spontaneously Ext: no peripheral edema Results Labs 05/25/22 05:44 05/25/22 05:44 Labs: Short CBC 05/24/22 05/25/22 Range/Units 16:37 05:44 WBC 20.4 H 12.2 H (4.8-10.8) X10*3/uL Hgb 14.1 13.2 L (14.0-18.0) g/dl Hct 42.0 39.6 L (42.0-52.0) % Plt Count 287 219 (160-400) X10*3/uL BMP 05/24/22 05/25/22 16:37 05:44 Sodium 140 143 Potassium 3.8 3.9 Chloride 106 111 H Carbon Dioxide 23 22 BUN 25 H 31 H Creatinine 3.05 H 2.78 H Calcium 9.2 8.2 L D Liver Function 05/24/22 Range/Units 16:37 Total Bilirubin 0.8 (0.0-1.0) mg/dL AST 11 (5-37) U/L ALT 6 (0-40) U/L Alkaline Phosphatase 106 (39-117) U/L Albumin 4.0 (3.5-5.0) g/dL Urine 05/25/22 Range/Units 04:17 Urine Color Yellow Urine Appearance Cloudy Urine pH 5.5 (5.0-9.0) Ur Specific [place] 1.020 (1.005-1.025) Urine Protein 300 (3+) H (Neg-Trace) mg/dL Urine Glucose (UA) Negative (Negative) mg/dL Imaging CT scan - abdomen: Radiologist's impression: GASTROINTESTINAL TRACT: There is scattered stool and gas seen throughout the colon with moderate soft tissue mass involving the ascending colon and pericolic fat stranding however limited due to lack of IV contrast. In the right paracolic gutter there is a soft tissue density measuring 2.7 x 2.2 cm and 3.9 Hounsfield units likely a small seroma from previous intervention there are punctate small lymph nodes seen in the right paracolic gutter. The small bowel loops are prominent with air-fluid levels likely secondary low-grade obstruction at the ileocecal junction and the proximal ascending colon. No free air or free fluid seen. ABDOMINAL WALL: There is midline and para midline anterior epigastric abdominal wall hernia containing fat. LYMPH NODES: There are numerous mesenteric lymph nodes seen in right paracolic region the largest soft tissue mass/lymph node measures 3.3 x 2.1 cm axial image 44/3 and slightly smaller lymph node measures 1.8 cm. Assessment and Plan (1) Small bowel obstruction: Status: Acute (2) Abdominal pain: Status: Acute (3) Colon wall thickening: Status: Acute Plan Patient has small bowel obstruction and transition point appears to be in ileocecal area/R colon. Although, obstruction appears to be low-grade radiographically (gas in colon), patient has been obstipated for the past 3 days, and clearly coli behaving as complete obstruction. This will preclude bowel preparation and a colonoscopy exam. Has been seen by surgery as well, and plan for conservative management over the next 24h to see if bowel function returns. However, patient remains obstipated, may need surgical intervention. CT imaging is suboptimal due to lack of IV contrast. Which in turn cannot be given due to his renal function. Recommendations: - Strict NPO. - Serial abd exams. - Can consider double contrast barium enema. - Hold tacrolimus. Check levels - Nephrology consultation for severe JOVANNY Thank you for Allowing me to participate in his care. Please do not hesitate to reach out for any questions or concerns. Time Spent With Patient Time: Total time managing care of this patient today ____ minutes. Procedures Date of Service Date of Service: 05/25/22
--- NOTE | 2022-05-25 13:10 | P.PNIM_ITS ---
Subjective Subjective Date of Service: 05/25/22 Interval History: sbo Review of Systems says abd pain seems improving has some burpin denies any nausea or vomitin no fevers Physical Exam Vital Signs: Vital Signs: Last Vital Signs Temp 98.5 F 05/25/22 09:20 Pulse 90 05/25/22 09:20 Resp 20 05/25/22 09:20 BP 157/74 H 05/25/22 09:20 Pulse Ox 96 05/25/22 09:20 O2 Del Method 05/25/22 09:20 BMI result Body Mass Index 28.8 Appearance: Alert.? Oriented X3.? not in distress. cvs: rrr, [id number] . res: clear to auscultation ,no rhonchii or wheezing abd: no rebound or guarding ,pain seems to be improving ( says it is interm ittent), bs present. ext pulses present , no cyanosis . neuro: axo3 , nonfocal. Objective Data Active Medications Acetaminophen (Acetaminophen 325 Mg Tablet) 650 mg PO Q6H PRN PRN Reason: Pain, Mild (Pain Scale 1-3) Dextrose (Dextrose 50 % 25 Gm/50 Ml Syringe) 25 gm IVPUSH Q15M PRN; Protocol PRN Reason: per Hypoglycemia Standing Ord. Docusate Sodium (Docusate Sodium 100 Mg Capsule) 100 mg PO DAILY PRN PRN Reason: Constipation Ergocalciferol (Ergocalciferol (Vitamin D2) 1,250 Mcg Capsule) 1,250 mcg PO TH@0900 [facility] Glucose (Glucose Gel 15 Gm Gel..Gram.) 15 gm PO Q15M PRN; Protocol PRN Reason: per Hypoglycemia Standing Ord. Heparin Sodium (Porcine) (Heparin Sodium,Porcine 5,000 Unit/Ml Vial) 5,000 unit SUBCUT Q12H [facility] Last Admin: 05/24/22 23:39 Dose: 5,000 unit Documented By: WILLY Lactated Ringer's (Lr) 1,000 mls @ 100 mls/hr IVCONT .Q10H [facility] Last Admin: 05/25/22 06:50 Dose: 100 mls/hr Documented By: WILLY Piperacillin Sod/Tazobactam (Sod 2.25 gm/ Sodium Chloride) 50 mls @ 100 mls/hr IV Q6H [facility] Insulin Glargine (Insulin Glargine,Hum.Rec.Anlog 100 Unit/Ml 10 Ml Vial) 24 unit SUBCUT BID [facility] Last Admin: 05/25/22 11:28 Dose: Not Given Documented By: SHEILA Non-Admin Reason: NPO Insulin Human Lispro (Insulin Lispro 100 Unit/Ml 3 Ml Vial) 0 unit SUBCUT QIDACHS [facility]; Protocol Last Admin: 05/25/22 11:27 Dose: Not Given Documented By: SHEILA Non-Admin Reason: No Insulin Coverage Morphine Sulfate (Morphine Sulfate 4 Mg/Ml Cartridge) 4 mg IVPUSH Q4H PRN; Protocol PRN Reason: Pain, Severe (Pain Scale 7-10) Last Admin: 05/25/22 09:53 Dose: 4 mg Documented By: SHEILA Ondansetron HCl (Ondansetron Hcl 4 Mg/2 Ml Vial) 4 mg IVPUSH Q8H PRN PRN Reason: Nausea and Vomiting Pharmacy Consult (Consult Rx Perform Med Rec) 1 each MISCELLANE ONCE PRN PRN Reason: Consult order Sodium Chloride (0.9 % Sodium Chloride Flush 3 Ml Syringe) 3 ml IVFLUSH QSHIFT [facility] Last Admin: 05/25/22 08:23 Dose: Not Given Documented By: LUIS Non-Admin Reason: IV Running Tacrolimus (Tacrolimus 1 Mg Capsule) 1 mg PO BID [facility] Last Admin: 05/25/22 09:52 Dose: 1 mg Documented By: SHEILA Labs 05/25/22 05:44 05/25/22 05:44 Labs: Laboratory Results - last 24 hr 05/24/22 05/24/22 05/24/22 16:37 16:37 16:37 MCV 85.2 MCH 28.6 MCHC 33.6 RDW 13.2 Plt Count 287 MPV 9.6 Immature Gran % (Auto) 0.5 H Neut % (Auto) 88.7 H Lymph % (Auto) 7.3 L Mccreary % (Auto) 3.1 Eos % (Auto) 0.2 Baso % (Auto) 0.2 Lymph # (Auto) 1.5 Mccreary # (Auto) 0.6 Eos # (Auto) 0.0 Baso # (Auto) 0.0 Abs Immat Gran (auto) 0.11 H Absolute Neuts (auto) 18.1 H Absolute Nucleated RBC 0.000 Nucleated RBC % (auto) 0.0 PT 11.0 INR 1.0 Anion Gap 15 Estim Creat Clear Calc 24.0 Estimated GFR 20 POC Glucose Random Glucose 229 H Lactic Acid Lactic Acid F/U @ 2Hr Calcium 9.2 Magnesium 2.6 Total Bilirubin 0.8 AST 11 ALT 6 Alkaline Phosphatase 106 Total Protein 7.2 Albumin 4.0 Lipase 10 Urine Color Urine Appearance Urine pH Ur Specific [place] Urine Protein Urine Glucose (UA) Urine Ketones Urine Blood Urine Nitrite Ur Leukocyte Esterase Urine RBC Urine WBC Ur Squamous Epith Cells Urine Bacteria Hyaline Casts COVID-19 (ELLA) COVID-19 Clin Com 05/24/22 05/24/22 05/24/22 16:37 16:50 19:03 MCV MCH MCHC RDW Plt Count MPV Immature Gran % (Auto) Neut % (Auto) Lymph % (Auto) Mccreary % (Auto) Eos % (Auto) Baso % (Auto) Lymph # (Auto) Mccreary # (Auto) Eos # (Auto) Baso # (Auto) Abs Immat Gran (auto) Absolute Neuts (auto) Absolute Nucleated RBC Nucleated RBC % (auto) PT INR Anion Gap Estim Creat Clear Calc Estimated GFR POC Glucose Random Glucose Lactic Acid 2.9 H* Lactic Acid F/U @ 2Hr 0.8 Calcium Magnesium Total Bilirubin AST ALT Alkaline Phosphatase Total Protein Albumin Lipase Urine Color Urine Appearance Urine pH Ur Specific [place] Urine Protein Urine Glucose (UA) Urine Ketones Urine Blood Urine Nitrite Ur Leukocyte Esterase Urine RBC Urine WBC Ur Squamous Epith Cells Urine Bacteria Hyaline Casts COVID-19 (ELLA) Negative COVID-19 Clin Com See Note 05/25/22 05/25/22 05/25/22 04:17 05:44 05:44 MCV 86.7 MCH 28.9 MCHC 33.3 RDW 13.3 Plt Count 219 MPV 9.6 Immature Gran % (Auto) 0.4 Neut % (Auto) 83.4 H Lymph % (Auto) 9.2 L Mccreary % (Auto) 6.1 Eos % (Auto) 0.7 Baso % (Auto) 0.2 Lymph # (Auto) 1.1 L M[place] # (Auto) 0.7 Eos # (Auto) 0.1 Baso # (Auto) 0.0 Abs Immat Gran (auto) 0.05 H Absolute Neuts (auto) 10.2 H Absolute Nucleated RBC 0.000 Nucleated RBC % (auto) 0.0 PT INR Anion Gap 14 Estim Creat Clear Calc 26.4 Estimated GFR 23 POC Glucose Random Glucose 159 H Lactic Acid Lactic Acid F/U @ 2Hr Calcium 8.2 L D Magnesium Total Bilirubin AST ALT Alkaline Phosphatase Total Protein Albumin Lipase Urine Color Yellow Urine Appearance Cloudy Urine pH 5.5 Ur Specific [place] 1.020 Urine Protein 300 (3+) H Urine Glucose (UA) Negative Urine Ketones Trace Urine Blood Negative Urine Nitrite Negative Ur Leukocyte Esterase Negative Urine RBC 0-2 Urine WBC 0-5 Ur Squamous Epith Cells 3-5 Urine Bacteria None Seen Hyaline Casts 0-2 COVID-19 (ELLA) COVID-19 Clin Com 05/25/22 05/25/22 07:13 11:25 MCV MCH MCHC RDW Plt Count MPV Immature Gran % (Auto) Neut % (Auto) Lymph % (Auto) Mccre[place] % (Auto) Eos % (Auto) Baso % (Auto) Lymph # (Auto) Mccreary # (Auto) Eos # (Auto) Baso # (Auto) Abs Immat Gran (auto) Absolute Neuts (auto) Absolute Nucleated RBC Nucleated RBC % (auto) PT INR Anion Gap Estim Creat Clear Calc Estimated GFR POC Glucose 148 H 135 H Random Glucose Lactic Acid Lactic Acid F/U @ 2Hr Calcium Magnesium Total Bilirubin AST ALT Alkaline Phosphatase Total Protein Albumin Lipase Urine Color Urine Appearance Urine pH Ur Specific [place] Urine Protein Urine Glucose (UA) Urine Ketones Urine Blood Urine Nitrite Ur Leukocyte Esterase Urine RBC Urine WBC Ur Squamous Epith Cells Urine Bacteria Hyaline Casts COVID-19 ([facility]) COVID-19 Clin Com Assessment and Plan (1) Colon wall thickening: Status: Acute (2) Small bowel obstruction: Status: Acute (3) Intraabdominal mass: Status: Acute (4) Abdominal pain: Status: Acute (5) Leukocytosis: Status: Acute (6) Acidosis, lactic: Status: Acute Plan 71-year-old male with past medical history of liver cirrhosis status post transplant 7 years ago presents to the hospital with complaints of abdominal pain, nausea and vomiting abdominal pain/leucocytosis possibly multifactorial in the setting of small-bowel obstruction as well as evidence of intra-abdominal mass concerning for seroma per CT wbc trending down ,no diarrahae,follow cultures at this time will keep NPO,IV fluids, continue iv antibiotics until seen by Gi. general surgery consulted-need Gi evalpossible colonoscopy, nasogastric tube if persistent nausea and vomiting.? acute lactic acidosis secondary to above improved she with IV fluids # JOVANNY? pvr and bladder scan unclear if he has baseline kidney disease attempting to obtain documents and past medical history from [facility] where he usually refers continue IV fluids asked records from [facility] nephro eval # hypertension - home meds on hold due to sbo. will add iv hydralazine as needed . # diabetes: fs [id number] hold lantus - low-dose sliding scale insulin adjusted -hold coverage below 200 mg/dl. # GERD - continue omeprazole # history of liver transplant ?on tacrolimus,tacrolimus levels in am, follows up with dr david echeverria in [facility]. ?at this time most of his medications have been on hold except for tacrolimus given the small obstruction until further evaluated by surgery DVT prophylaxis heparin subQ inpatient need:sbo,possible mass -need bowel rest ,hydration ,may need ngt and possible colonscopy for ? colon mass /sbo . Time Spent With Patient Time: Total time managing care of this patient today ____ minutes. Quality Stroke Does the patient have a stroke diagnosis?: No VTE Prior VTE?: No VTE Risk Level:: Medical - moderate - high VTE Device Contraindication: Treatment Not Indicated VTE Drug Contraindication: N/A - Med Ordered
[2022-05-25] MEDS: Heparin Sodium,Porcine 5,000 UNIT/ML VIAL 5000 UNIT SUBCUT ×2 (13:29→22:59)
--- NOTE | 2022-05-25 13:57 | MHC.CM.PN ---
CM MET WITH PT AND SON AT BEDSIDE PT LIVES ALONE AND IS INDEPENDENT WITH CARE PT HAS NO DME AND NO SERVICES PT REPORTS HE IS COVID VAX AND BOOSTED HE SAYS HIS SON IS HIS HCP, COPY REQUESTED PCP: STUART MOISE IMM DELIVERED CURRENT DC PLAN IS HOME WITH NO SERVICES FAMILY TO TRANSPORT
[2022-05-25 16:16] LABS: Glucose, Whole Blood 124 mg/dL (60-115)
[2022-05-25] MEDS: Dextrose 5 % and 0.9 % NaCl 1,000 ML 100 ML IVCONT (17:57)
--- NOTE | 2022-05-25 18:17 | PC.NURSE ---
patient states he prefer not to have NG tube inserted,SADE Richey notified,explained to patient that NG is recomended for his condition.Patient states that if he starts vomiting than he will let me insert NG,SADE Richey was notified.
[2022-05-25 19:23] LABS: Glucose, Whole Blood 115 mg/dL (60-115)
[2022-05-26] MEDS: Piperacillin Sodium/Tazobactam 2.25 GM in 0.9 % Sodium Chloride 50 ML IV ×5 (00:07→23:27)
[2022-05-26 03:13] VITALS: BP 124/61; PULSE 83; RESP 18; TEMP 36.6; O2SAT 94
--- NOTE | 2022-05-26 03:56 | PC.NURSE ---
05/25/22 pt voided bladder scanned for 38 cc.
[2022-05-26] MEDS: Dextrose 5 % and 0.9 % NaCl 1,000 ML 100 ML IVCONT ×3 (06:06→23:28)
[2022-05-26] MEDS: Morphine Sulfate 4 MG/ML CARTRIDGE IVPUSH ×4 (06:41→23:26)
[2022-05-26 06:46] LABS: Anion Gap 14 (12-20); Blood Urea Nitrogen 24 mg/dL (9-16); Calcium 7.8 mg/dL (8.4-10.2); Carbon Dioxide 24 mmol/L (22-29); Chloride 111 mmol/L (96-108); Creatinine Clr Calc Pharmacy 32.9; Estimated Glomerular Filt Rate 29; Glucose Random 125 mg/dL (60-115); Potassium 3.6 mmol/L (3.3-5.1); Sodium 145 mmol/L (135-145)
--- NOTE | 2022-05-26 07:14 | PM.PNGS ---
Subjective Subjective Date of Service: 05/26/22 Patient reports: no new complaints Interval history: Patient continues to report burping but no flatus or bowel movement. Pain control is adequate. Physical Exam Vital Signs: Vital Signs: Last Vital Signs Temp 98 F 05/26/22 03:13 Pulse 83 05/26/22 03:13 Resp 18 05/26/22 03:13 BP 124/61 05/26/22 03:13 Pulse Ox 94 05/26/22 03:13 O2 Del Method 05/26/22 03:13 BMI result Body Mass Index 28.8 Const: General: no acute distress Nutritional Appearance: well nourished Orientation/consciousness: patient oriented x3 Limitations: no limitations Resp: Effort & Inspection: normal respiratory effort GI: Other: Soft, distended, tympany to percussion, nontender to palpation. Bowel sounds diminished. Skin: Other: Warm, dry, no rash Neuro: General: patient oriented x3 Extrem: Other: no edema Objective Data Active Medications Acetaminophen (Acetaminophen 325 Mg Tablet) 650 mg PO Q6H PRN PRN Reason: Pain, Mild (Pain Scale 1-3) Dextrose (Dextrose 50 % 25 Gm/50 Ml Syringe) 25 gm IVPUSH Q15M PRN; Protocol PRN Reason: per Hypoglycemia Standing Ord. Docusate Sodium (Docusate Sodium 100 Mg Capsule) 100 mg PO DAILY PRN PRN Reason: Constipation Ergocalciferol (Ergocalciferol (Vitamin D2) 1,250 Mcg Capsule) 1,250 mcg PO TH@0900 [facility] Glucose (Glucose Gel 15 Gm Gel..Gram.) 15 gm PO Q15M PRN; Protocol PRN Reason: per Hypoglycemia Standing Ord. Heparin Sodium (Porcine) (Heparin Sodium,Porcine 5,000 Unit/Ml Vial) 5,000 unit SUBCUT Q12H [facility] Last Admin: 05/25/22 22:59 Dose: 5,000 unit Documented By: JOAQUÍN Hydralazine HCl (Hydralazine Hcl 20 Mg/Ml Vial) 5 mg IVPUSH Q6H PRN; Protocol PRN Reason: htn Dextrose/Sodium Chloride (D5ns) 1,000 mls @ 100 mls/hr IVCONT .Q10H [facility] Last Admin: 05/26/22 06:06 Dose: 100 mls/hr Documented By: JOAQUÍN Piperacillin Sod/Tazobactam (Sod 2.25 gm/ Sodium Chloride) 50 mls @ 100 mls/hr IV Q6H [facility] Last Infusion: 05/26/22 06:45 Dose: 0 mls/hr Documented By: JOAQUÍN Insulin Glargine (Insulin Glargine,Hum.Rec.Anlog 100 Unit/Ml 10 Ml Vial) 24 unit SUBCUT BID [facility] Last Admin: 05/25/22 11:28 Dose: Not Given Documented By: SHEILA Non-Admin Reason: NPO Insulin Human Lispro (Insulin Lispro 100 Unit/Ml 3 Ml Vial) 0 unit SUBCUT QIDACHS [facility]; Protocol Last Admin: 05/25/22 19:42 Dose: Not Given Documented By: JOAQUÍN Non-Admin Reason: No Insulin Coverage Morphine Sulfate (Morphine Sulfate 4 Mg/Ml Cartridge) 4 mg IVPUSH Q4H PRN; Protocol PRN Reason: Pain, Severe (Pain Scale 7-10) Last Admin: 05/26/22 06:41 Dose: 4 mg Documented By: JOAQUÍN Ondansetron HCl (Ondansetron Hcl 4 Mg/2 Ml Vial) 4 mg IVPUSH Q8H PRN PRN Reason: Nausea and Vomiting Pharmacy Consult (Consult Rx Perform Med Rec) 1 each MISCELLANE ONCE PRN PRN Reason: Consult order Sodium Chloride (0.9 % Sodium Chloride Flush 3 Ml Syringe) 3 ml IVFLUSH QSHIFT [facility] Last Admin: 05/25/22 21:14 Dose: Not Given Documented By: JOAQUÍN Non-Admin Reason: IV Running Tacrolimus (Tacrolimus 1 Mg Capsule) 1 mg PO BID [facility] Last Admin: 05/25/22 21:10 Dose: 1 mg Documented By: JOAQUÍN Labs 05/25/22 05:44 05/26/22 05:43 Labs: Laboratory Results - last 24 hr 05/25/22 05/25/22 05/25/22 07:13 11:25 15:13 Anion Gap Estim Creat Clear Calc Estimated GFR POC Glucose 148 H 135 H 124 H Random Glucose Calcium 05/25/22 05/26/22 19:00 05:43 Anion Gap 14 Estim Creat Clear Calc 32.9 Estimated GFR 29 POC Glucose 115 Random Glucose 125 H Calcium 7.8 L Microbiology Microbiology Results: Microbiology 05/24/22 17:32 Blood Culture - Preliminary Blood - Venous No growth after 24 hours. 05/24/22 17:32 Blood Culture - Preliminary Blood - Venous No growth after 24 hours. Procedures Date of Service Date of Service: 05/26/22 Progress Note: A&P Assessment and plan (1) Colon wall thickening: Status: Acute (2) Small bowel obstruction: Status: Acute Plan 71-year-old male patient presenting with small-bowel obstruction with abdominal distension and a possible right colon mass. Appreciate GI consultation. Awaiting further workup with very minimum today. Further management based on the studies. Time Spent With Patient Time: Total time managing care of this patient today ____ minutes. No Severe Sepsis: No Severe Sepsis Quality Stroke Does the patient have a stroke diagnosis?: No VTE Prior VTE?: No VTE Risk Level:: Medical - moderate - high VTE Device Contraindication: Treatment Not Indicated VTE Drug Contraindication: N/A - Med Ordered
[2022-05-26 07:50] LABS: Glucose, Whole Blood 126 mg/dL (60-115)
[2022-05-26 08:00] VITALS: BP 128/67; PULSE 88; RESP 18; TEMP 36.6; O2SAT 94
[2022-05-26] MEDS: Heparin Sodium,Porcine 5,000 UNIT/ML VIAL 5000 UNIT SUBCUT ×2 (10:19→23:27)
--- NOTE | 2022-05-26 10:27 | PM.CNNEP ---
History of Present Illness Reason for Consult Consult date: 05/26/22 Reason for consult: JOVANNY Chief Complaint Chief complaint: Abd pain History of Present Illness Narrative: 71-year-old man with a medical history of alcoholic cirrhosis status post liver transplant 2015 (at [facility]) on tacrolimus, type 2 diabetes, hypertension, BPH, who presented to the hospital yesterday for abdominal pain, distension, nausea and vomiting and was found to have small bowel obstruction. Patient states that almost 2 months ago, he had a similar episode of abdominal pain, distention and nausea which went away within 1-2 days, and he attributed this to food poisoning. Then, 4 days ago, he started developing sharp abdominal pain again with worsening distension.? Denies any nausea or vomiting prior to the day of admission.? Was able to tolerate diet up until the day before.? Then, yesterday morning, had significant increase in the severity of pain associated with nausea as well as 1 episode of vomiting, which he describes as bilious.? Has not been able to pass any flatus or bowel movement for 3 days now. Apart from liver transplantation, no history of other abdominal surgeries. ? He thinks he had a colonoscopy in 2016 as part of pre transplant evaluation.? No family history of colon cancer or advanced polyp. Review of Systems Review of Systems Yes all other systems are reviewed and are negative Constitutional: Denies chills, Denies fever(s), Denies headache(s), Reports poor appetite and Denies weakness Denies headache(s) Cardiovascular: Denies chest pain, Denies irregular heart rhythm, Denies palpitations and Denies dyspnea Respiratory: Denies cough, Denies excessive phlegm production and Denies dyspnea Gastrointestinal: Reports abdominal pain, Reports bloating, Reports change in bowel habits, Reports constipation, Denies heartburn, Reports diarrhea, Reports nausea and Reports vomiting Genitourinary: Denies difficulty urinating and Denies urinary frequency Musculoskeletal: Denies back pain, Denies muscle weakness and Denies numbness Skin/Breast: Denies changing lesions and Denies unusual bruising Denies headache(s), Denies numbness, Denies paresthesias and Denies weakness Psychiatric: Denies anxiety and Denies depression Endocrine: Denies palpitations Hematologic/Lymphatic: Denies lymphadenopathy PMFSH Past Medical History Medical History Diabetes GERD (gastroesophageal reflux disease) History of BPH Hypertension Surgical History Surgical History History of liver transplant Social History Social History Household Members: None Housing: Apartment Do you presently have visiting nurse or other home services: No Alcohol intake: former Patient Tobacco Use Status: Former Tobacco user service: Yes Current occupational status: retired Meds Allergies Allergy/AdvReac Type Severity Reaction Status Date / Time No Known Allergies Allergy Verified 05/24/22 16:32 Active Medications: Current Medications Acetaminophen (Acetaminophen 325 Mg Tablet) 650 mg PO Q6H PRN PRN Reason: Pain, Mild (Pain Scale 1-3) Dextrose (Dextrose 50 % 25 Gm/50 Ml Syringe) 25 gm IVPUSH Q15M PRN; Protocol PRN Reason: per Hypoglycemia Standing Ord. Docusate Sodium (Docusate Sodium 100 Mg Capsule) 100 mg PO DAILY PRN PRN Reason: Constipation Ergocalciferol (Ergocalciferol (Vitamin D2) 1,250 Mcg Capsule) 1,250 mcg PO TH@0900 [facility] Glucose (Glucose Gel 15 Gm Gel..Gram.) 15 gm PO Q15M PRN; Protocol PRN Reason: per Hypoglycemia Standing Ord. Heparin Sodium (Porcine) (Heparin Sodium,Porcine 5,000 Unit/Ml Vial) 5,000 unit SUBCUT Q12H [facility] Last Admin: 05/26/22 10:19 Dose: 5,000 unit Hydralazine HCl (Hydralazine Hcl 20 Mg/Ml Vial) 5 mg IVPUSH Q6H PRN; Protocol PRN Reason: htn Dextrose/Sodium Chloride (D5ns) 1,000 mls @ 100 mls/hr IVCONT .Q10H [facility] Last Admin: 05/26/22 06:06 Dose: 100 mls/hr Piperacillin Sod/Tazobactam (Sod 2.25 gm/ Sodium Chloride) 50 mls @ 100 mls/hr IV Q6H [facility] Last Infusion: 05/26/22 06:45 Dose: Infused Insulin Glargine (Insulin Glargine,Hum.Rec.Anlog 100 Unit/Ml 10 Ml Vial) 24 unit SUBCUT BID [facility] Last Admin: 05/25/22 11:28 Dose: Not Given Insulin Human Lispro (Insulin Lispro 100 Unit/Ml 3 Ml Vial) 0 unit SUBCUT QIDACHS [facility]; Protocol Last Admin: 05/26/22 07:52 Dose: Not Given Morphine Sulfate (Morphine Sulfate 4 Mg/Ml Cartridge) 4 mg IVPUSH Q4H PRN; Protocol PRN Reason: Pain, Severe (Pain Scale 7-10) Last Admin: 05/26/22 06:41 Dose: 4 mg Ondansetron HCl (Ondansetron Hcl 4 Mg/2 Ml Vial) 4 mg IVPUSH Q8H PRN PRN Reason: Nausea and Vomiting Pharmacy Consult (Consult Rx Perform Med Rec) 1 each MISCELLANE ONCE PRN PRN Reason: Consult order Sodium Chloride (0.9 % Sodium Chloride Flush 3 Ml Syringe) [facility] Last Admin: 05/26/22 10:18 Dose: Not Given Tacrolimus (Tacrolimus 1 Mg Capsule) 1 mg PO BID [facility] Last Admin: 05/26/22 10:19 Dose: Not Given Home Medications Medication Instructions Recorded Confirmed Last Taken Type amlodipine 10 mg tablet 1 tab PO DAILY 05/24/22 05/24/22 05/24/22 09:00 History dulaglutide 0.75 mg/0.5 mL 0.75 mg subcut MEJIAS@0905/24/22 05/24/22 05/18/22 History subcutaneous pen injector (Trulicity) ergocalciferol (vitamin D2) 1,250 1 cap PO TH@0900 05/24/22 05/24/22 05/22/22 History mcg (50,000 unit) capsule insulin glargine 100 unit/mL (3 24 unit subcut BID 05/24/22 05/24/22 05/23/22 History mL) subcutaneous pen (Lantus Solostar U-100 Insulin) metoprolol tartrate 25 mg tablet 1 tab PO BID 05/24/22 05/24/22 05/24/22 09:00 History omeprazole 20 mg capsule,delayed 1 cap PO DAILY@0630 05/24/22 05/24/22 05/24/22 09:00 History release tacrolimus 1 mg capsule, 1 cap PO BID 05/24/22 05/24/22 05/24/22 09:00 History immediate-release tamsulosin 0.4 mg capsule 1 cap PO BEDTIME 05/24/22 05/24/22 05/23/22 History Physical Exam Vital Signs: Last Vital Signs Temp 98 F 05/26/22 08:00 Pulse 88 05/26/22 08:00 Resp 18 05/26/22 08:00 BP 128/67 05/26/22 08:00 Pulse Ox 94 05/26/22 08:00 O2 Del Method 05/26/22 08:00 BMI result Body Mass Index 28.8 Const General: cooperative and no acute distress Nutritional Appearance: well nourished Orientation/consciousness: patient oriented x3 Limitations: no limitations HEENT Head: Yes normocephalic and Yes atraumatic Ears: hearing grossly normal bilaterally Eyes General: appearance normal, both eyes and all related structures Resp Effort & Inspection: normal respiratory effort, no audible wheezes, no cough and no respiratory distress Auscultation: clear to auscultation bilaterally Cardio Jugular venous distension: no JVD Rate: regular rate Rhythm: regular rhythm GI Inspection: Yes normal to inspection, Yes distended, Yes incision and Yes Abdominal panniculus present Palpation (GI): Soft to palpation, Tenderness to palpation present (GI) in the RUQ; with no rebound tenderness and Rovsing's sign negative, no guarding, not rigid and Hernia present ( Incisional hernia in upper abdomen chevron incision) Percussion: Yes tympanic to percussion Auscultation: normal bowel sounds Skin General skin exam: no rashes or lesions noted Neuro General: patient oriented x3 Cognition (Neuro): normal cognition Extrem General: Yes normal to inspection, Yes no clubbing, cyanosis or edema and Yes no pedal edema Results Lab Results 05/25/22 05:44 05/26/22 05:43 Lab results: Chemistry 05/24/22 05/25/22 05/26/22 16:37 05:44 05:43 Sodium 140 143 145 Potassium 3.8 3.9 3.6 Carbon Dioxide 23 22 24 BUN 25 H 31 H 24 H Creatinine 3.05 H 2.78 H 2.23 H Calcium 9.2 8.2 L D 7.8 L Hematology 05/24/22 05/25/22 16:37 05:44 WBC 20.4 H 12.2 H Hgb 14.1 13.2 L Plt Count 287 219 Urinalysis 05/25/22 04:17 Urine Color Yellow Urine Appearance Cloudy Urine pH 5.5 Ur Specific [place] 1.020 Urine Protein 300 (3+) H Urine Glucose (UA) Negative Urine Ketones Trace Urine Blood Negative Urine Nitrite Negative Ur Leukocyte Esterase Negative Urine RBC 0-2 Urine WBC 0-5 Ur Squamous Epith Cells 3-5 Hyaline Casts 0-2 Assessment and Plan (1) Colon wall thickening: Status: Acute (2) Small bowel obstruction: Status: Acute (3) JOVANNY (acute kidney injury): Status: Acute JOVANNY superimposed on CKD JOVANNY most likely due to volume depletion/hypoperfusion No obstruction by CT r/o AGN/AiN - but seems unlikely based on clinical picture r/o [place] toxicity Baseline unknown. Track results from [facility] s/p Liver transplant at [facility] Now with Colon mass Suggest Keep I > O Check [place] level Watch UO Continue to avoid nephro toxins Time Spent With Patient Time: Total time managing care of this patient today ____ minutes. Procedures Date of Service Date of Service: 05/26/22
--- NOTE | 2022-05-26 12:43 | MHC.CM.PN ---
NO PLAN FOR DC TODAY
[2022-05-26] MEDS: Tacrolimus 1 MG CAPSULE PO ×2 (13:32→21:04)
--- NOTE | 2022-05-26 14:10 | PC.NURSE ---
1400 Pt voiding in urinal, bladder scanned for 24ml
--- NOTE | 2022-05-26 15:32 | P.PNIM_ITS ---
Subjective Subjective Date of Service: 05/26/22 Interval History: sbo,? right colon mass Review of Systems says abd pain seems improving has some burpin denies any nausea or vomitin no fevers Physical Exam Vital Signs: Vital Signs: Last Vital Signs Temp 98 F 05/26/22 08:00 Pulse 88 05/26/22 08:00 Resp 18 05/26/22 08:00 BP 128/67 05/26/22 08:00 Pulse Ox 94 05/26/22 08:00 O2 Del Method 05/26/22 08:00 BMI result Body Mass Index 28.8 ?Appearance: Alert.? Oriented X3.? not in distress. cvs: rrr, [id number] . res: clear to auscultation ,no rhonchii or wheezing abd: no rebound or guarding ,pain seems to be improving ( says it is intermittent),Bowel sounds diminished.. ext pulses present , no cyanosis . neuro: axo3 , nonfocal. Objective Data Active Medications Acetaminophen (Acetaminophen 325 Mg Tablet) 650 mg PO Q6H PRN PRN Reason: Pain, Mild (Pain Scale 1-3) Dextrose (Dextrose 50 % 25 Gm/50 Ml Syringe) 25 gm IVPUSH Q15M PRN; Protocol PRN Reason: per Hypoglycemia Standing Ord. Docusate Sodium (Docusate Sodium 100 Mg Capsule) 100 mg PO DAILY PRN PRN Reason: Constipation Ergocalciferol (Ergocalciferol (Vitamin D2) 1,250 Mcg Capsule) 1,250 mcg PO TH@0900 [facility] Glucose (Glucose Gel 15 Gm Gel..Gram.) 15 gm PO Q15M PRN; Protocol PRN Reason: per Hypoglycemia Standing Ord. Heparin Sodium (Porcine) (Heparin Sodium,Porcine 5,000 Unit/Ml Vial) 5,000 unit SUBCUT Q12H [facility] Last Admin: 05/26/22 10:19 Dose: 5,000 unit Documented By: KIZZY Hydralazine HCl (Hydralazine Hcl 20 Mg/Ml Vial) 5 mg IVPUSH Q6H PRN; Protocol PRN Reason: htn Dextrose/Sodium Chloride (D5ns) 1,000 mls @ 100 mls/hr IVCONT .Q10H [facility] Last Admin: 05/26/22 13:57 Dose: 100 mls/hr Documented By: KIZZY Piperacillin Sod/Tazobactam (Sod 2.25 gm/ Sodium Chloride) 50 mls @ 100 mls/hr IV Q6H [facility] Last Infusion: 05/26/22 13:59 Dose: 0 mls/hr Documented By: KIZZY Insulin Glargine (Insulin Glargine,Hum.Rec.Anlog 100 Unit/Ml 10 Ml Vial) 24 unit SUBCUT BID [facility] Last Admin: 05/25/22 11:28 Dose: Not Given Documented By: SHEILA Non-Admin Reason: NPO Insulin Human Lispro (Insulin Lispro 100 Unit/Ml 3 Ml Vial) 0 unit SUBCUT QI [facility]; Protocol Last Admin: 05/26/22 12:35 Dose: Not Given Documented By: KIZZY Non-Admin Reason: Pt off unit & NPO Morphine Sulfate (Morphine Sulfate 4 Mg/Ml Cartridge) 4 mg IVPUSH Q4H PRN; Protocol PRN Reason: Pain, Severe (Pain Scale 7-10) Last Admin: 05/26/22 13:53 Dose: 4 mg Documented By: KIZZY Ondansetron HCl (Ondansetron Hcl 4 Mg/2 Ml Vial) 4 mg IVPUSH Q8H PRN PRN Reason: Nausea and Vomiting Pharmacy Consult (Consult Rx Perform Med Rec) 1 each MISCELLANE ONCE PRN PRN Reason: Consult order Sodium Chloride (0.9 % Sodium Chloride Flush 3 Ml Syringe) 3 ml IVFLUSH QSHIFT [facility] Last Admin: 05/26/22 10:18 Dose: Not Given Documented By: KIZZY Non-Admin Reason: IV Running Tacrolimus (Tacrolimus 1 Mg Capsule) 1 mg PO BID [facility] Last Admin: 05/26/22 13:32 Dose: 1 mg Documented By: KIZZY Labs 05/25/22 05:44 05/26/22 05:43 Labs: Laboratory Results - last 24 hr 05/25/22 05/25/22 05/26/22 15:13 19:00 05:43 Anion Gap 14 Estim Creat Clear Calc 32.9 Estimated GFR 29 POC Glucose 124 H 115 Random Glucose 125 H Calcium 7.8 L 05/26/22 07:11 Anion Gap Estim Creat Clear Calc Estimated GFR POC Glucose 126 H Random Glucose Calcium Microbiology Microbiology Results: Microbiology 05/24/22 17:32 Blood Culture - Preliminary Blood - Venous No growth after 24 hours. 05/24/22 17:32 Blood Culture - Preliminary Blood - Venous No growth after 24 hours. Assessment and Plan (1) JOVANNY (acute kidney injury): Status: Acute (2) Colon wall thickening: Status: Acute (3) Small bowel obstruction: Status: Acute (4) Intraabdominal mass: Status: Acute (5) Abdominal pain: Status: Acute (6) Leukocytosis: Status: Acute (7) Acidosis, lactic: Status: Acute Plan 71-year-old male with past medical history of liver cirrhosis status post transplant 7 years ago presents to the hospital with complaints of abdominal pain, nausea and vomiting ?abdominal pain/leucocytosis possibly multifactorial in the setting of small-bowel obstruction as well as evidence of intra-abdominal mass concerning for seroma per CT wbc trending down ,no diarrahae,follow cultures ? general surgery consulted-need Gi evalpossible colonoscopy, nasogastric tube if persistent nausea and vomiting.? d/w surgery and Gi-barium contrast enema added -Abnormal long segment of proximal ascending colon suggestive of underlying lesion with moderate narrowing and small bowel distention secondary to obstruction. continue NPO,IV fluids, continue iv antibiotics until seen by Gi. Gi and surgery followin we also reached out patient liver transplant team- they have accepted patient - no bed so far. if any questions -[phone] for checkin bed avalbilty also his Janet Pugh is patient crab fisherman( [phone]). Spoke to patient crab fisherman at also our GI and surgery team. In addition patient was offered NGT yesterday and today also he refuses he says that if he start vomiting then only he wants n GT. acute lactic acidosis ?secondary to above improved? she with IV fluids # JOVANNY on ckd ( patient says has kidney disease) pvr and bladder scan ?unclear if he has baseline kidney disease attempting to obtain documents and past medical history from [facility] where he usually refers continue IV fluids, renal function improving with hydration asked records from [facility] nephro evolimpia noted . # hypertension - home meds on hold due to sbo.blood pressure acceptable so far( 120-140 max) will add iv hydralazine as needed . # diabetes: fs [id number] hold lantus - low-dose sliding scale insulin adjusted -hold coverage below 200 mg/dl. # GERD - continue omeprazole # history of liver transplant ?on? tacrolimus,tacrolimus levels in am, follows up with dr janet echeverria in [facility]. ?at this time most of his medications have been on hold except for tacrolimus given the small obstruction until further evaluated by surgery DVT prophylaxis heparin subQ inpatient need:sbo,possible mass -need bowel rest ,hydration ,may need ngt and possible colonscopy for ? colon mass /sbo . Time Spent With Patient Time: Total time managing care of this patient today ____ minutes. Quality Stroke Does the patient have a stroke diagnosis?: No VTE Prior VTE?: No VTE Risk Level:: Medical - moderate - high VTE Device Contraindication: Treatment Not Indicated VTE Drug Contraindication: N/A - Med Ordered
[2022-05-26 15:50] VITALS: BP 155/68; PULSE 77; RESP 18; TEMP 36.4; O2SAT 95
--- NOTE | 2022-05-26 16:04 | P.PNGI_ITS ---
Subjective Subjective Date of Service: 05/26/22 Critical Care Time (minutes): 0 Comment: Pt seen and evaluated at bedside. Passed barium enema KS but otherwise continues to be obstipated with constant burping. Barium enema completed today. Suggestive of apple core lesion of prox ascending colon. Physical Exam Vital Signs: Vital Signs: Last Vital Signs Temp 97.5 F 05/26/22 15:50 Pulse 77 05/26/22 15:50 Resp 18 05/26/22 15:50 BP 155/68 H 05/26/22 15:50 Pulse Ox 95 05/26/22 15:50 O2 Del Method 05/26/22 15:50 BMI result Body Mass Index 28.8 gen appear:NAD Abd: soft, mildly tender, distended Objective Data Labs 05/25/22 05:44 05/26/22 05:43 Labs: Laboratory Results - last 24 hr 05/25/22 05/25/22 05/26/22 15:13 19:00 05:43 Sodium 145 Potassium 3.6 Chloride 111 H Carbon Dioxide 24 Anion Gap 14 BUN 24 H Creatinine 2.23 H Estim Creat Clear Calc 32.9 Estimated GFR 29 POC Glucose 124 H 115 Random Glucose 125 H Calcium 7.8 L 05/26/22 07:11 Sodium Potassium Chloride Carbon Dioxide Anion Gap BUN Creatinine Estim Creat Clear Calc Estimated GFR POC Glucose 126 H Random Glucose Calcium Microbiology Microbiology Results: Microbiology 05/24/22 17:32 Blood - Venous Blood Culture - Preliminary No growth after 24 hours. 05/24/22 17:32 Blood - Venous Blood Culture - Preliminary No growth after 24 hours. Procedures Date of Service Date of Service: 05/26/22 Progress Note: A&P Assessment and plan (1) Small bowel obstruction: Status: Acute (2) Abdominal pain: Status: Acute (3) Colon wall thickening: Status: Acute Plan Barium enema suggestive of malignant colonic narrowing leading to SBO. Pt clinically with complete obstruction which precludes endoscopic evaluation. Extensively reviewed indication for NGT for decompression and pt will consider it later today . Plan [facility] under colorectal surgery as long as pt remains clinically stable. Cont serial abd exams. Time Spent With Patient Time: Total time managing care of this patient today ____ minutes. Quality Stroke Does the patient have a stroke diagnosis?: No VTE Prior VTE?: No VTE Risk Level:: Medical - moderate - high VTE Device Contraindication: Treatment Not Indicated VTE Drug Contraindication: N/A - Med Ordered
[2022-05-26 16:35] LABS: Glucose, Whole Blood 124 mg/dL (60-115)
[2022-05-26 19:44] VITALS: BP 147/70; PULSE 80; RESP 18; TEMP 36.5; O2SAT 94
[2022-05-26 19:51] LABS: Glucose, Whole Blood 109 mg/dL (60-115)
[2022-05-27 04:00] VITALS: BP 171/77; PULSE 82; RESP 16; TEMP 37; O2SAT 95
[2022-05-27] MEDS: Piperacillin Sodium/Tazobactam 2.25 GM in 0.9 % Sodium Chloride 50 ML IV ×3 (05:54→18:12)
[2022-05-27] MEDS: Morphine Sulfate 4 MG/ML CARTRIDGE IVPUSH ×4 (06:00→21:14)
[2022-05-27 07:11] LABS: Hematocrit 34.6 % (42.0-52.0); Hemoglobin 11.5 g/dl (14.0-18.0); Mean Corpuscular HGB Conc 33.2 g/dl (31.0-36.0); Mean Corpuscular Hemoglobin 28.5 pg (27.0-33.0); Mean Corpuscular Volume 85.6 fL (80.0-98.0); Mean Platelet Volume 9.4 fL (9.4-12.4); Platelet Count 202 X10*3/uL (160-400); Red Blood Count 4.04 X10*6/uL (4.60-5.80); Red Cell Distribution Width 12.9 % (11.0-16.0); White Blood Count 7.1 X10*3/uL (4.8-10.8)
[2022-05-27 07:44] LABS: Anion Gap 13 (12-20); Blood Urea Nitrogen 17 mg/dL (9-16); Calcium 8.2 mg/dL (8.4-10.2); Carbon Dioxide 22 mmol/L (22-29); Chloride 111 mmol/L (96-108); Creatinine Clr Calc Pharmacy 37.4; Estimated Glomerular Filt Rate 34; Glucose Random 130 mg/dL (60-115); Potassium 3.5 mmol/L (3.3-5.1); Sodium 142 mmol/L (135-145)
[2022-05-27 07:51] LABS: Glucose, Whole Blood 139 mg/dL (60-115)
[2022-05-27 08:00] VITALS: BP 153/72; PULSE 84; RESP 18; TEMP 36.6; O2SAT 96
[2022-05-27 09:47] LABS: Tacrolimus Prograf 7.8 NG/ML ((5-20))
--- NOTE | 2022-05-27 10:04 | PM.PNNEP ---
Subjective Subjective Date of Service: 05/27/22 Interval history: Events noted Physical Exam Vital Signs: Vital Signs: Last Vital Signs Temp 97.9 F 05/27/22 08:00 Pulse 84 05/27/22 08:00 Resp 18 05/27/22 08:00 BP 153/72 H 05/27/22 08:00 Pulse Ox 96 05/27/22 08:00 O2 Del Method 05/27/22 08:00 BMI result Body Mass Index 28.8 Const: General: cooperative and no acute distress Nutritional Appearance: well nourished Orientation/consciousness: patient oriented x3 Limitations: no limitations HEENT: Head: Yes normocephalic and Yes atraumatic Ears: hearing grossly normal bilaterally Eyes: General: appearance normal, both eyes and all related structures Resp: Effort & Inspection: normal respiratory effort, no audible wheezes, no cough and no respiratory distress Auscultation: clear to auscultation bilaterally Cardio: Jugular venous distension: no JVD Rate: regular rate Rhythm: regular rhythm GI: Inspection: Yes normal to inspection, Yes distended, Yes incision and Yes Abdominal panniculus present Palpation (GI): Soft to palpation, Tenderness to palpation present (GI) in the RUQ; with no rebound tenderness and Rovsing's sign negative, no guarding, not rigid and Hernia present ( Incisional hernia in upper abdomen chevron incision) Percussion: Yes tympanic to percussion Auscultation: normal bowel sounds Skin: General skin exam: no rashes or lesions noted Neuro: General: patient oriented x3 Cognition (Neuro): normal cognition Extrem: General: Yes normal to inspection, Yes no clubbing, cyanosis or edema and Yes no pedal edema Objective Data Labs 05/27/22 06:07 05/27/22 06:07 Labs: Laboratory Results - last 24 hr 05/26/22 05/26/22 05/26/22 05:43 16:32 19:47 WBC RBC Hgb Hct MCV MCH MCHC RDW Plt Count MPV Absolute Nucleated RBC Nucleated RBC % (auto) Sodium Potassium Chloride Carbon Dioxide Anion Gap BUN Creatinine Estim Creat Clear Calc Estimated GFR POC Glucose 124 H 109 Random Glucose Calcium Tacrolimus 7.8 05/27/22 05/27/22 05/27/22 06:07 06:07 07:39 WBC 7.1 RBC 4.04 L Hgb 11.5 L Hct 34.6 L MCV 85.6 MCH 28.5 MCHC 33.2 RDW 12.9 Plt Count 202 MPV 9.4 Absolute Nucleated RBC 0.000 Nucleated RBC % (auto) 0.0 Sodium 142 Potassium 3.5 Chloride 111 H Carbon Dioxide 22 Anion Gap 13 BUN 17 H Creatinine 1.96 H Estim Creat Clear Calc 37.4 Estimated GFR 34 POC Glucose 139 H Random Glucose 130 H Calcium 8.2 L Tacrolimus Microbiology Microbiology Results: Microbiology 05/24/22 17:32 Blood - Venous Blood Culture - Preliminary No growth after 48 hours. 05/24/22 17:32 Blood - Venous Blood Culture - Preliminary No growth after 48 hours. Procedures Date of Service Date of Service: 05/27/22 Assessment & Plan Assessment and plan (1) Colon wall thickening: Status: Acute (2) Small bowel obstruction: Status: Acute (3) JOVANNY (acute kidney injury): Status: Acute Assessment and Plan: JOVANNY superimposed on CKD JOVANNY most likely due to volume depletion/hypoperfusion No obstruction by CT r/o AGN/AiN - but seems unlikely based on clinical picture r/o [place] toxicity Baseline unknown. Track results from [facility] s/p Liver transplant at [facility] Now with Colon mass Cr is trending down Suggest Keep I > O Check [place] level Watch UO Continue to avoid nephro toxins Time Spent With Patient Time: Total time managing care of this patient today ____ minutes. Progress Note: Quality Stroke Does the patient have a stroke diagnosis?: No
[2022-05-27] MEDS: Dextrose 5 % and 0.9 % NaCl 1,000 ML 100 ML IVCONT (10:41)
[2022-05-27] MEDS: Tacrolimus 1 MG CAPSULE PO ×2 (10:41→21:08)
[2022-05-27 11:49] LABS: Glucose, Whole Blood 124 mg/dL (60-115)
[2022-05-27] MEDS: Heparin Sodium,Porcine 5,000 UNIT/ML VIAL 5000 UNIT SUBCUT ×2 (11:57→21:08)
--- NOTE | 2022-05-27 12:01 | MHC.CM.PN ---
PER MEDICAL ROUNDS, PATIENT IS POSSIBLE CUTE CARE TRANSFER. ATTEMPTS BEING MADE
--- NOTE | 2022-05-27 13:17 | HO.PM.IMPN ---
Subjective Subjective Date of Service: 05/27/22 Interval History: f/u on sbo, colon mass Physical Exam Vital Signs: Vital Signs: Last Vital Signs Temp 97.9 F 05/27/22 08:00 Pulse 84 05/27/22 08:00 Resp 18 05/27/22 08:00 BP 153/72 H 05/27/22 08:00 Pulse Ox 96 05/27/22 08:00 O2 Del Method 05/27/22 08:00 BMI result Body Mass Index 28.8 Const: Other: General: AO X 3, no acute distress Resp: CTA bilateral CVS: S1,S2,RRR GI: +BS, NT, no distention Skin: No rash Neuro: motor grossly intact Psych: appropriate affect Objective Data Active Medications Acetaminophen (Acetaminophen 325 Mg Tablet) 650 mg PO Q6H PRN PRN Reason: Pain, Mild (Pain Scale 1-3) Dextrose (Dextrose 50 % 25 Gm/50 Ml Syringe) 25 gm IVPUSH Q15M PRN; Protocol PRN Reason: per Hypoglycemia Standing Ord. Docusate Sodium (Docusate Sodium 100 Mg Capsule) 100 mg PO DAILY PRN PRN Reason: Constipation Ergocalciferol (Ergocalciferol (Vitamin D2) 1,250 Mcg Capsule) 1,250 mcg PO TH@0900 [facility] Glucose (Glucose Gel 15 Gm Gel..Gram.) 15 gm PO Q15M PRN; Protocol PRN Reason: per Hypoglycemia Standing Ord. Heparin Sodium (Porcine) (Heparin Sodium,Porcine 5,000 Unit/Ml Vial) 5,000 unit SUBCUT Q12H [facility] Last Admin: 05/27/22 11:57 Dose: 5,000 unit Documented By: KIZZY Hydralazine HCl (Hydralazine Hcl 20 Mg/Ml Vial) 5 mg IVPUSH Q6H PRN; Protocol PRN Reason: htn Dextrose/Sodium Chloride (D5ns) 1,000 mls @ 100 mls/hr IVCONT .Q10H [facility] Last Admin: 05/27/22 10:41 Dose: 100 mls/hr Documented By: KIZZY Piperacillin Sod/Tazobactam (Sod 2.25 gm/ Sodium Chloride) 50 mls @ 100 mls/hr IV Q6H [facility] Last Infusion: 05/27/22 12:28 Dose: 0 mls/hr Documented By: KIZZY Insulin Glargine (Insulin Glargine,Hum.Rec.Anlog 100 Unit/Ml 10 Ml Vial) 24 unit SUBCUT BID [facility] Last Admin: 05/25/22 11:28 Dose: Not Given Documented By: SHEILA Non-Admin Reason: NPO Insulin Human Lispro (Insulin Lispro 100 Unit/Ml 3 Ml Vial) 0 unit SUBCUT QIDACHS [facility]; Protocol Last Admin: 05/27/22 11:51 Dose: Not Given Documented By: KIZZY Non-Admin Reason: No Insulin Coverage Morphine Sulfate (Morphine Sulfate 4 Mg/Ml Cartridge) 4 mg IVPUSH Q4H PRN; Protocol PRN Reason: Pain, Severe (Pain Scale 7-10) Last Admin: 05/27/22 11:58 Dose: 4 mg Documented By: KIZZY Ondansetron HCl (Ondansetron Hcl 4 Mg/2 Ml Vial) 4 mg IVPUSH Q8H PRN PRN Reason: Nausea and Vomiting Pharmacy Consult (Consult Rx Perform Med Rec) 1 each MISCELLANE ONCE PRN PRN Reason: Consult order Sodium Chloride (0.9 % Sodium Chloride Flush 3 Ml Syringe) 3 ml IVFLUSH QSHIFT [facility] Last Admin: 05/27/22 09:43 Dose: Not Given Documented By: KIZZY Non-Admin Reason: IV Running Tacrolimus (Tacrolimus 1 Mg Capsule) 1 mg PO BID [facility] Last Admin: 05/27/22 10:41 Dose: 1 mg Documented By: KIZZY Labs 05/27/22 06:07 05/27/22 06:07 Labs: Laboratory Results - last 24 hr 05/26/22 05/26/22 05/26/22 05:43 16:32 19:47 MCV MCH MCHC RDW Plt Count MPV Absolute Nucleated RBC Nucleated RBC % (auto) Anion Gap Estim Creat Clear Calc Estimated GFR POC Glucose 124 H 109 Random Glucose Calcium Tacrolimus 7.8 05/27/22 05/27/22 05/27/22 06:07 06:07 07:39 MCV 85.6 MCH 28.5 MCHC 33.2 RDW 12.9 Plt Count 202 MPV 9.4 Absolute Nucleated RBC 0.000 Nucleated RBC % (auto) 0.0 Anion Gap 13 Estim Creat Clear Calc 37.4 Estimated GFR 34 POC Glucose 139 H Random Glucose 130 H Calcium 8.2 L Tacrolimus 05/27/22 11:39 MCV MCH MCHC RDW Plt Count MPV Absolute Nucleated RBC Nucleated RBC % (auto) Anion Gap Estim Creat Clear Calc Estimated GFR POC Glucose 124 H Random Glucose Calcium Tacrolimus Microbiology Microbiology Results: Microbiology 05/24/22 17:32 Blood Culture - Preliminary Blood - Venous No growth after 48 hours. 05/24/22 17:32 Blood Culture - Preliminary Blood - Venous No growth after 48 hours. Assessment and Plan (1) JOVANNY (acute kidney injury): Status: Acute (2) Colon wall thickening: Status: Acute (3) Small bowel obstruction: Status: Acute (4) Intraabdominal mass: Status: Acute (5) Abdominal pain: Status: Acute (6) Leukocytosis: Status: Acute (7) Acidosis, lactic: Status: Acute Plan 71-year-old male with past medical history of liver cirrhosis status post transplant 7 years ago presents to the hospital with complaints of abdominal pain, nausea and vomiting Abdominal pain, colon mass, history of liver transplant at [email or web address] awaiting transfer to [facility] [[email or web address] acute lactic acidosis ?secondary to above improved? she with IV fluids # JOVANNY on CKD3, Cr at baseline # hypertension - home meds on hold due to sbo.blood pressure acceptable so far( 120-140 max) will add iv hydralazine as needed . # diabetes: fs [id number] hold lantus - low-dose sliding scale insulin adjusted -hold coverage below 200 mg/dl. # GERD - continue omeprazole # history of liver transplant ?on? tacrolimus,tacrolimus levels in am, follows up with dr david echeverria in [facility]. ?at this time most of his medications have been on hold except for tacrolimus given the small obstruction until further evaluated by surgery DVT prophylaxis heparin subQ inpatient need:sbo,possible mass -need bowel rest ,hydration ,may need ngt and possible colonscopy for ? colon mass /sbo . Time Spent With Patient Time: Total time managing care of this patient today ____ minutes. Quality Stroke Does the patient have a stroke diagnosis?: No VTE Prior VTE?: No VTE Risk Level:: Medical - moderate - high VTE Device Contraindication: Treatment Not Indicated VTE Drug Contraindication: N/A - Med Ordered
[2022-05-27 15:57] VITALS: BP 164/75; PULSE 82; RESP 18; TEMP 37; O2SAT 97
[2022-05-27 16:32] LABS: Glucose, Whole Blood 106 mg/dL (60-115)
--- NOTE | 2022-05-27 17:24 | PC.NURSE ---
1600 BP 164/75, Dr. Johnson aware, does not want to give PRN hydralazine and cont. to monitor
[2022-05-27 19:46] VITALS: BP 141/76; PULSE 86; RESP 18; TEMP 37; O2SAT 96
[2022-05-27 20:16] LABS: Glucose, Whole Blood 117 mg/dL (60-115)
[2022-05-28] MEDS: Piperacillin Sodium/Tazobactam 2.25 GM in 0.9 % Sodium Chloride 50 ML IV ×4 (01:10→17:36)
[2022-05-28] MEDS: Morphine Sulfate 4 MG/ML CARTRIDGE IVPUSH ×3 (01:18→22:30)
[2022-05-28 03:08] VITALS: BP 155/72; PULSE 100; RESP 18; TEMP 36.8; O2SAT 95
[2022-05-28 07:34] VITALS: BP 167/79; PULSE 103; RESP 18; TEMP 36.7; O2SAT 96
[2022-05-28 07:42] LABS: Glucose, Whole Blood 137 mg/dL (60-115)
--- NOTE | 2022-05-28 08:41 | P.PNGS_ITS ---
Subjective Subjective Date of Service: 05/28/22 Patient reports: no new complaints, still having pain and no flatus Physical Exam Vital Signs: Vital Signs: Last Vital Signs Temp 98.1 F 05/28/22 07:34 Pulse 103 H 05/28/22 07:34 Resp 18 05/28/22 07:34 BP 167/79 H 05/28/22 07:34 Pulse Ox 96 05/28/22 07:34 O2 Del Method 05/28/22 07:34 BMI result Body Mass Index 28.8 Const: General: no acute distress Nutritional Appearance: average body habitus Orientation/consciousness: patient oriented x3 Limitations: no limitations Resp: Effort & Inspection: normal respiratory effort, no audible wheezes, no cough and no respiratory distress GI: Inspection: Yes distended Palpation (GI): Soft to palpation, nontender and no guarding Percussion: Yes tympanic to percussion Neuro: General: patient oriented x3 Extrem: General: Yes normal to inspection Objective Data Active Medications Acetaminophen (Acetaminophen 325 Mg Tablet) 650 mg PO Q6H PRN PRN Reason: Pain, Mild (Pain Scale 1-3) Dextrose (Dextrose 50 % 25 Gm/50 Ml Syringe) 25 gm IVPUSH Q15M PRN; Protocol PRN Reason: per Hypoglycemia Standing Ord. Docusate Sodium (Docusate Sodium 100 Mg Capsule) 100 mg PO DAILY PRN PRN Reason: Constipation Ergocalciferol (Ergocalciferol (Vitamin D2) 1,250 Mcg Capsule) 1,250 mcg PO TH@0900 [facility] Glucose (Glucose Gel 15 Gm Gel..Gram.) 15 gm PO Q15M PRN; Protocol PRN Reason: per Hypoglycemia Standing Ord. Heparin Sodium (Porcine) (Heparin Sodium,Porcine 5,000 Unit/Ml Vial) 5,000 unit SUBCUT Q12H [facility] Last Admin: 05/27/22 21:08 Dose: 5,000 unit Documented By: LILY Hydralazine HCl (Hydralazine Hcl 20 Mg/Ml Vial) 5 mg IVPUSH Q6H PRN; Protocol PRN Reason: htn Piperacillin Sod/Tazobactam (Sod 2.25 gm/ Sodium Chloride) 50 mls @ 100 mls/hr IV Q6H [facility] Last Infusion: 05/28/22 06:32 Dose: 0 mls/hr Documented By: CRIS Insulin Glargine (Insulin Glargine,Hum.Rec.Anlog 100 Unit/Ml 10 Ml Vial) 24 unit SUBCUT BID [facility] Last Admin: 05/25/22 11:28 Dose: Not Given Documented By: SHEILA Non-Admin Reason: NPO Insulin Human Lispro (Insulin Lispro 100 Unit/Ml 3 Ml Vial) 0 unit SUBCUT QIDACHS [facility]; Protocol Last Admin: 05/28/22 07:45 Dose: Not Given Documented By: ALEXANDRIA Non-Admin Reason: No Insulin Coverage Morphine Sulfate (Morphine Sulfate 4 Mg/Ml Cartridge) 4 mg IVPUSH Q4H PRN; Protocol PRN Reason: Pain, Severe (Pain Scale 7-10) Last Admin: 05/28/22 01:18 Dose: 4 mg Documented By: CRIS Ondansetron HCl (Ondansetron Hcl 4 Mg/2 Ml Vial) 4 mg IVPUSH Q8H PRN PRN Reason: Nausea and Vomiting Pharmacy Consult (Consult Rx Perform Med Rec) 1 each MISCELLANE ONCE PRN PRN Reason: Consult order Sodium Chloride (0.9 % Sodium Chloride Flush 3 Ml Syringe) 3 ml IVFLUSH QSHIFT [facility] Last Admin: 05/27/22 21:18 Dose: Not Given Documented By: LILY Non-Admin Reason: IV Running Tacrolimus (Tacrolimus 1 Mg Capsule) 1 mg PO BID [facility] Last Admin: 05/27/22 21:08 Dose: 1 mg Documented By: LILY Labs 05/27/22 06:07 05/27/22 06:07 Labs: Laboratory Results - last 24 hr 05/26/22 05/27/22 05/27/22 05:43 11:39 16:21 POC Glucose 124 H 106 Tacrolimus 7.8 05/27/22 05/28/22 19:48 07:38 POC Glucose 117 H 137 H Tacrolimus Procedures Date of Service Date of Service: 05/28/22 Progress Note: A&P Assessment and plan (1) Colon wall thickening: Status: Acute (2) Small bowel obstruction: Status: Acute Plan 71-year-old male patient with prior history of liver transplant now found to have a right colon mass by barium enema and on CT possibly a right colon cancer. Plan is for patient to be transported to [facility] transplant service further management. I reviewed the reasons for transport with the patient and he expr essed understanding. He is frustrated at the time it is taking to be transported but agrees with the plan. Time Spent With Patient Time: Total time managing care of this patient today ____ minutes. Quality Stroke Does the patient have a stroke diagnosis?: No VTE Prior VTE?: No VTE Risk Level:: Medical - moderate - high VTE Device Contraindication: Treatment Not Indicated VTE Drug Contraindication: N/A - Med Ordered
[2022-05-28] MEDS: Tacrolimus 1 MG CAPSULE PO ×2 (09:10→22:13)
[2022-05-28] MEDS: 0.9 % Sodium Chloride Flush 3 ML SYRINGE IVFLUSH ×3 (09:11→22:13)
[2022-05-28 11:28] LABS: Glucose, Whole Blood 144 mg/dL (60-115)
[2022-05-28] MEDS: Heparin Sodium,Porcine 5,000 UNIT/ML VIAL 5000 UNIT SUBCUT ×2 (12:03→22:16)
--- NOTE | 2022-05-28 13:20 | P.PNNP_ITS ---
Subjective Subjective Date of Service: 05/28/22 Interval history: Events noted. All recent data reviewed. Renal function improving Physical Exam Vital Signs: Vital Signs: Last Vital Signs Temp 98.1 F 05/28/22 07:34 Pulse 103 H 05/28/22 07:34 Resp 18 05/28/22 07:34 BP 167/79 H 05/28/22 07:34 Pulse Ox 96 05/28/22 07:34 O2 Del Method 05/28/22 07:34 BMI result Body Mass Index 28.8 Const: General: no acute distress Orientation/consciousness: patient oriented x3 HEENT: Mouth: Normal oral and palatal mucosa present Eyes: EOM: EOMs intact bilaterally Neck: Neck: Yes supple Resp: Auscultation: diminished lung sounds Cardio: Rate: regular rate GI: Palpation (GI): Soft to palpation Neuro: General: patient oriented x3 Objective Data Labs 05/27/22 06:07 05/27/22 06:07 Labs: Laboratory Results - last 24 hr 05/27/22 05/27/22 05/28/22 16:21 19:48 07:38 POC Glucose 106 117 H 137 H 05/28/22 11:15 POC Glucose 144 H Microbiology Microbiology Results: Microbiology 05/24/22 17:32 Blood - Venous Blood Culture - Preliminary No growth after 48 hours. 05/24/22 17:32 Blood - Venous Blood Culture - Preliminary No growth after 48 hours. 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 obstruction by CT; s/p Liver transplant at [facility] Renal function improving with supportive care No change in tacrolimus dosage for now Time Spent With Patient Time: Total time managing care of this patient today ____ minutes. Progress Note: Quality Stroke Does the patient have a stroke diagnosis?: No
[2022-05-28 16:00] VITALS: BP 154/68; PULSE 101; RESP 18; TEMP 37; O2SAT 98
[2022-05-28 16:33] LABS: Glucose, Whole Blood 184 mg/dL (60-115)
[2022-05-28 19:07] VITALS: BP 128/78; PULSE 109; RESP 18; TEMP 37.4; O2SAT 100
[2022-05-28 19:44] LABS: Glucose, Whole Blood 156 mg/dL (60-115)
[2022-05-28] MEDS: ondansetron HCL 4 MG/2 ML VIAL IVPUSH (22:30)
[2022-05-29] MEDS: Piperacillin Sodium/Tazobactam 2.25 GM in 0.9 % Sodium Chloride 50 ML IV ×5 (00:39→23:57)
--- NOTE | 2022-05-29 03:25 | PC.NURSE ---
Pt had three episodes of vomiting, green; no blood or clots noted. Also reported passing gas twice, no bowel movement.
[2022-05-29 03:34] VITALS: BP 152/78; PULSE 101; RESP 16; TEMP 37.1; O2SAT 94
[2022-05-29] MEDS: Morphine Sulfate 4 MG/ML CARTRIDGE IVPUSH ×3 (06:22→15:53)
[2022-05-29 08:00] VITALS: BP 175/92; RESP 16; TEMP 36.9; O2SAT 95
[2022-05-29 09:06] LABS: Glucose, Whole Blood 176 mg/dL (60-115)
[2022-05-29] MEDS: Ergocalciferol (Vitamin D2) 1,250 MCG CAPSULE 1250 MCG PO (09:12)
[2022-05-29] MEDS: Insulin Lispro 100 UNIT/ML 3 ML VIAL SUBCUT (09:12)
[2022-05-29] MEDS: 0.9 % Sodium Chloride Flush 3 ML SYRINGE IVFLUSH ×3 (09:13→20:41)
[2022-05-29] MEDS: Tacrolimus 1 MG CAPSULE PO ×2 (09:19→20:41)
--- NOTE | 2022-05-29 10:27 | HO.PM.IMPN ---
Subjective Subjective Date of Service: 05/29/22 Interval History: Events noted. All recent data reviewed. Renal function improving Review of Systems says abd pain seems improving has some burpin denies any nausea or vomitin no fevers Physical Exam Vital Signs: Vital Signs: Last Vital Signs Temp 98.4 F 05/29/22 08:00 Pulse 101 H 05/29/22 03:34 Resp 16 05/29/22 08:00 BP 175/92 H 05/29/22 08:00 Pulse Ox 95 05/29/22 08:00 O2 Del Method 05/29/22 08:00 BMI result Body Mass Index 28.8 Const: Other: General: AO X 3, no acute distress Resp: CTA bilateral CVS: S1,S2,RRR GI: +BS, NT, no distention Skin: No rash Neuro: motor grossly intact Psych: appropriate affect Objective Data Active Medications Acetaminophen (Acetaminophen 325 Mg Tablet) 650 mg PO Q6H PRN PRN Reason: Pain, Mild (Pain Scale 1-3) Dextrose (Dextrose 50 % 25 Gm/50 Ml Syringe) 25 gm IVPUSH Q15M PRN; Protocol PRN Reason: per Hypoglycemia Standing Ord. Docusate Sodium (Docusate Sodium 100 Mg Capsule) 100 mg PO DAILY PRN PRN Reason: Constipation Ergocalciferol (Ergocalciferol (Vitamin D2) 1,250 Mcg Capsule) 1,250 mcg PO TH@0900 [facility] Last Admin: 05/29/22 09:12 Dose: 1,250 mcg Documented By: TIANNA Glucose (Glucose Gel 15 Gm Gel..Gram.) 15 gm PO Q15M PRN; Protocol PRN Reason: per Hypoglycemia Standing Ord. Heparin Sodium (Porcine) (Heparin Sodium,Porcine 5,000 Unit/Ml Vial) 5,000 unit SUBCUT Q12H [facility] Last Admin: 05/28/22 22:16 Dose: 5,000 unit Documented By: CRIS Hydralazine HCl (Hydralazine Hcl 20 Mg/Ml Vial) 5 mg IVPUSH Q6H PRN; Protocol PRN Reason: htn Piperacillin Sod/Tazobactam (Sod 2.25 gm/ Sodium Chloride) 50 mls @ 100 mls/hr IV Q6H [facility] Last Infusion: 05/29/22 06:31 Dose: 0 mls/hr Documented By: CRIS Insulin Glargine (Insulin Glargine,Hum.Rec.Anlog 100 Unit/Ml 10 Ml Vial) 24 unit SUBCUT BID [facility] Last Admin: 05/25/22 11:28 Dose: Not Given Documented By: SHEILA Non-Admin Reason: NPO Insulin Human Lispro (Insulin Lispro 100 Unit/Ml 3 Ml Vial) 0 unit SUBCUT QIDACHS [facility]; Protocol Last Admin: 05/29/22 09:12 Dose: 2 unit Documented By: TIANNA Morphine Sulfate (Morphine Sulfate 4 Mg/Ml Cartridge) 4 mg IVPUSH Q4H PRN; Protocol PRN Reason: Pain, Severe (Pain Scale 7-10) Last Admin: 05/29/22 06:22 Dose: 4 mg Documented By: CRIS Ondansetron HCl (Ondansetron Hcl 4 Mg/2 Ml Vial) 4 mg IVPUSH Q8H PRN PRN Reason: Nausea and Vomiting Last Admin: 05/28/22 22:30 Dose: 4 mg Documented By: CRIS Pharmacy Consult (Consult Rx Perform Med Rec) 1 each MISCELLANE ONCE PRN PRN Reason: Consult order Sodium Chloride (0.9 % Sodium Chloride Flush 3 Ml Syringe) 3 ml IVFLUSH QSHIFT [facility] Last Admin: 05/29/22 09:13 Dose: 3 ml Documented By: TIANNA Tacrolimus (Tacrolimus 1 Mg Capsule) 1 mg PO BID [facility] Last Admin: 05/29/22 09:19 Dose: 1 mg Documented By: TIANNA Labs 05/27/22 06:07 05/27/22 06:07 Labs: Laboratory Results - last 24 hr 05/28/22 05/28/22 05/28/22 11:15 16:28 19:08 POC Glucose 144 H 184 H 156 H 05/29/22 09:03 POC Glucose 176 H Assessment and Plan (1) JOVANNY (acute kidney injury): Status: Acute (2) Colon wall thickening: Status: Acute (3) Small bowel obstruction: Status: Acute (4) Intraabdominal mass: Status: Acute (5) Abdominal pain: Status: Acute (6) Leukocytosis: Status: Acute (7) Acidosis, lactic: Status: Acute Plan 71-year-old male with past medical history of liver cirrhosis status post transplant 7 years ago presents to the hospital with complaints of abdominal pain, nausea and vomiting Abdominal pain, colon mass, history of liver transplant at [facility]--?right colon mass by barium enema and on CT possibly a right colon cancer.? Plan is for patient to be transported to [facility] transplant service further management. as of yesterday no bed available, passing flutus acute lactic acidosis ?secondary to above improved? she with IV fluids # JOVANNY on CKD3, Cr at baseline, continue [place], check labs # hypertension - home meds on hold due to sbo.blood pressure acceptable so far( 120-140 max) will add iv hydralazine as needed . # diabetes: fs [id number] hold lantus - low-dose sliding scale insulin adjusted -hold coverage below 200 mg/dl. # GERD - continue omeprazole # history of liver transplant ?on? tacrolimus,tacrolimus levels in am, follows up with dr david echeverria in [facility]. ?at this time most of his medications have been on hold except for tacrolimus given the small obstruction until further evaluated by surgery DVT prophylaxis heparin subQ inpatient need:sbo,possible mass -need bowel rest ,hydration ,may need ngt and possible colonscopy for ? colon mass /sbo . Time Spent With Patient Time: Total time managing care of this patient today ____ minutes. Quality Stroke Does the patient have a stroke diagnosis?: No VTE Prior VTE?: No VTE Risk Level:: Medical - moderate - high VTE Device Contraindication: Treatment Not Indicated VTE Drug Contraindication: N/A - Med Ordered
[2022-05-29] MEDS: Heparin Sodium,Porcine 5,000 UNIT/ML VIAL 5000 UNIT SUBCUT ×2 (11:16→23:57)
--- NOTE | 2022-05-29 11:33 | P.PNNP_ITS ---
Subjective Subjective Date of Service: 05/29/22 Interval history: Events noted. All recent data reviewed. Awaiting bed in [facility] Physical Exam Vital Signs: Vital Signs: Last Vital Signs Temp 98.4 F 05/29/22 08:00 Pulse 101 H 05/29/22 03:34 Resp 16 05/29/22 08:00 BP 175/92 H 05/29/22 08:00 Pulse Ox 95 05/29/22 08:00 O2 Del Method 05/29/22 08:00 BMI result Body Mass Index 28.8 Const: General: no acute distress Orientation/consciousness: patient oriented x3 Eyes: EOM: EOMs intact bilaterally Neck: Neck: Yes supple Resp: Auscultation: diminished lung sounds Cardio: Rate: regular rate GI: Palpation (GI): Soft to palpation Neuro: General: patient oriented x3 Objective Data Labs 05/27/22 06:07 05/27/22 06:07 Labs: Laboratory Results - last 24 hr 05/28/22 05/28/22 05/29/22 16:28 19:08 09:03 POC Glucose 184 H 156 H 176 H Microbiology Microbiology Results: Microbiology 05/24/22 17:32 Blood - Venous Blood Culture - Preliminary No growth after 48 hours. 05/24/22 17:32 Blood - Venous Blood Culture - Preliminary No growth after 48 hours. 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 obstruction by CT; s/p Liver transplant at [facility] Renal function improved with supportive care No change in tacrolimus dosage for now Progress Note: Quality Stroke Does the patient have a stroke diagnosis?: No
[2022-05-29 11:52] LABS: Glucose, Whole Blood 189 mg/dL (60-115)
--- NOTE | 2022-05-29 15:29 | MHC.CM.PN ---
PER ROUNDS, PATIENT IS STILL A [facility] TRANSFER WAIT
[2022-05-29 15:40] VITALS: BP 178/93; PULSE 100; RESP 17; TEMP 36.9; O2SAT 94
[2022-05-29] MEDS: hydrALAZINE HCl 20 MG/ML VIAL 5 MG IVPUSH (15:53)
[2022-05-29 16:36] LABS: Glucose, Whole Blood 163 mg/dL (60-115)
[2022-05-29 20:00] VITALS: BP 153/80; PULSE 95; RESP 17; TEMP 37; O2SAT 97
[2022-05-29 20:11] LABS: Glucose, Whole Blood 167 mg/dL (60-115)
[2022-05-30 04:00] VITALS: BP 159/83; PULSE 110; RESP 18; TEMP 37.1; O2SAT 96
[2022-05-30] MEDS: Piperacillin Sodium/Tazobactam 2.25 GM in 0.9 % Sodium Chloride 50 ML IV ×3 (05:43→20:04)
[2022-05-30 07:55] LABS: Glucose, Whole Blood 192 mg/dL (60-115)
[2022-05-30 08:00] VITALS: BP 141/94; PULSE 98; RESP 17; TEMP 37; O2SAT 100
[2022-05-30] MEDS: 0.9 % Sodium Chloride Flush 3 ML SYRINGE IVFLUSH ×2 (08:22→22:43)
[2022-05-30] MEDS: Tacrolimus 1 MG CAPSULE PO ×2 (08:22→20:09)
--- NOTE | 2022-05-30 09:30 | P.PNIM_ITS ---
Subjective Subjective Date of Service: 05/30/22 Interval History: f/u on sbo, still no bm, abd discomfort Review of Systems says abd pain seems improving has some burpin denies any nausea or vomitin no fevers Physical Exam Vital Signs: Vital Signs: Last Vital Signs Temp 98.6 F 05/30/22 08:00 Pulse 98 05/30/22 08:00 Resp 17 05/30/22 08:00 BP 141/94 H 05/30/22 08:00 Pulse Ox 100 05/30/22 08:00 O2 Del Method 05/30/22 08:00 BMI result Body Mass Index 28.8 Const: Other: General: AO X 3, no acute distress Resp: CTA bilateral CVS: S1,S2,RRR GI: +BS, NT, no distention Skin: No rash Neuro: motor grossly intact Psych: appropriate affect Objective Data Active Medications Acetaminophen (Acetaminophen 325 Mg Tablet) 650 mg PO Q6H PRN PRN Reason: Pain, Mild (Pain Scale 1-3) Dextrose (Dextrose 50 % 25 Gm/50 Ml Syringe) 25 gm IVPUSH Q15M PRN; Protocol PRN Reason: per Hypoglycemia Standing Ord. Docusate Sodium (Docusate Sodium 100 Mg Capsule) 100 mg PO DAILY PRN PRN Reason: Constipation Ergocalciferol (Ergocalciferol (Vitamin D2) 1,250 Mcg Capsule) 1,250 mcg PO TH@0900 [facility] Last Admin: 05/29/22 09:12 Dose: 1,250 mcg Documented By: TIANNA Glucose (Glucose Gel 15 Gm Gel..Gram.) 15 gm PO Q15M PRN; Protocol PRN Reason: per Hypoglycemia Standing Ord. Heparin Sodium (Porcine) (Heparin Sodium,Porcine 5,000 Unit/Ml Vial) 5,000 unit SUBCUT Q12H [facility] Last Admin: 05/29/22 23:57 Dose: 5,000 unit Documented By: KANDISORALB Hydralazine HCl (Hydralazine Hcl 20 Mg/Ml Vial) 5 mg IVPUSH Q6H PRN; Protocol PRN Reason: htn Last Admin: 05/29/22 15:53 Dose: 5 mg Documented By: TIANNA Piperacillin Sod/Tazobactam (Sod 2.25 gm/ Sodium Chloride) 50 mls @ 100 mls/hr IV Q6H [facility] Last Infusion: 05/30/22 06:23 Dose: 0 mls/hr Documented By: CRIS Insulin Glargine (Insulin Glargine,Hum.Rec.Anlog 100 Unit/Ml 10 Ml Vial) 24 unit SUBCUT BID [facility] Last Admin: 05/25/22 11:28 Dose: Not Given Documented By: SHEILA Non-Admin Reason: NPO Insulin Human Lispro (Insulin Lispro 100 Unit/Ml 3 Ml Vial) 0 unit SUBCUT QIDACHS [facility]; Protocol Last Admin: 05/30/22 08:09 Dose: Not Given Documented By: MERRICK Non-Admin Reason: No Insulin Coverage Ondansetron HCl (Ondansetron Hcl 4 Mg/2 Ml Vial) 4 mg IVPUSH Q8H PRN PRN Reason: Nausea and Vomiting Last Admin: 05/28/22 22:30 Dose: 4 mg Documented By: CRIS Pharmacy Consult (Consult Rx Perform Med Rec) 1 each MISCELLANE ONCE PRN PRN Reason: Consult order Sodium Chloride (0.9 % Sodium Chloride Flush 3 Ml Syringe) 3 ml IVFLUSH QSHIFT [facility] Last Admin: 05/30/22 08:22 Dose: 3 ml Documented By: MERRICK Tacrolimus (Tacrolimus 1 Mg Capsule) 1 mg PO BID [facility] Last Admin: 05/30/22 08:22 Dose: 1 mg Documented By: MERRICK Labs 05/27/22 06:07 05/27/22 06:07 Labs: Laboratory Results - last 24 hr 05/29/22 05/29/22 05/29/22 11:49 16:34 20:08 POC Glucose 189 H 163 H 167 H 05/30/22 07:51 POC Glucose 192 H Microbiology Microbiology Results: Microbiology 05/24/22 17:32 Blood Culture - Final Blood - Venous No growth after 5 days. 05/24/22 17:32 Blood Culture - Final Blood - Venous No growth after 5 days. Assessment and Plan (1) OJVANNY (acute kidney injury): Status: Acute (2) Colon wall thickening: Status: Acute (3) Small bowel obstruction: Status: Acute (4) Intraabdominal mass: Status: Acute (5) Abdominal pain: Status: Acute (6) Leukocytosis: Status: Acute (7) Acidosis, lactic: Status: Acute Plan 71-year-old male with past medical history of liver cirrhosis status post transplant 7 years ago presents to the hospital with complaints of abdominal pain, nausea and vomiting Abdominal pain, colon mass, history of liver transplant at [facility]--?right colon mass by barium enema and on CT possibly a right colon cancer.? Plan is for patient to be transported to [facility] transplant service further management. as of yesterday no bed available, passing flutus. Will get update from [facility] acute lactic acidosis ?secondary to above improved? she with IV fluids # JOVANNY on CKD3, Cr at baseline, continue Tacro, check labs today # hypertension - home meds on hold due to sbo.blood pressure acceptable so far( 120-140 max) will add iv hydralazine as needed . # diabetes: fs [id number] hold lantus - low-dose sliding scale insulin adjusted -hold coverage below 200 mg/dl. # GERD - continue omeprazole # history of liver transplant ?on? tacrolimus,tacrolimus levels in am, follows up with dr david echeverria in [facility]. ?at this time most of his medications have been on hold except for tacrolimus gi marleen the small obstruction until further evaluated by surgery DVT prophylaxis heparin subQ inpatient need:sbo,possible mass -need bowel rest ,hydration ,may need ngt and possible colonscopy for ? colon mass /sbo . Time Spent With Patient Time: Total time managing care of this patient today ____ minutes. Quality Stroke Does the patient have a stroke diagnosis?: No VTE Prior VTE?: No VTE Risk Level:: Medical - moderate - high VTE Device Contraindication: Treatment Not Indicated VTE Drug Contraindication: N/A - Med Ordered
[2022-05-30 09:31] LABS: Anion Gap 20 (12-20); Blood Urea Nitrogen 36 mg/dL (9-16); Calcium 9.3 mg/dL (8.4-10.2); Carbon Dioxide 22 mmol/L (22-29); Chloride 110 mmol/L (96-108); Estimated Glomerular Filt Rate 26; Glucose Random 178 mg/dL (60-115); Sodium 148 mmol/L (135-145)
--- NOTE | 2022-05-30 10:57 | PM.PNNEP ---
Subjective Subjective Date of Service: 05/30/22 Interval history: Continues to have abd discomfort. Physical Exam Vital Signs: Vital Signs: Last Vital Signs Temp 98.6 F 05/30/22 08:00 Pulse 98 05/30/22 08:00 Resp 17 05/30/22 08:00 BP 141/94 H 05/30/22 08:00 Pulse Ox 100 05/30/22 08:00 O2 Del Method 05/30/22 08:00 BMI result Body Mass Index 28.8 Const: Other: General: AO X 3, no acute distress Resp: CTA bilateral CVS: S1,S2,RRR GI: +BS, NT, no distention Skin: No rash Neuro: motor grossly intact Psych: appropriate affect Objective Data Labs 05/27/22 06:07 05/30/22 09:04 Labs: Laboratory Results - last 24 hr 05/29/22 05/29/22 05/29/22 11:49 16:34 20:08 Sodium Potassium Chloride Carbon Dioxide Anion Gap BUN Creatinine Estim Creat Clear Calc Estimated GFR POC Glucose 189 H 163 H 167 H Random Glucose Calcium 05/30/22 05/30/22 07:51 09:04 Sodium 148 H Potassium 4.0 Chloride 110 H Carbon Dioxide 22 Anion Gap 20 BUN 36 H Creatinine 2.44 H Estim Creat Clear Calc 30.0 Estimated GFR 26 POC Glucose 192 H Random Glucose 178 H Calcium 9.3 D Microbiology Microbiology Results: Microbiology 05/24/22 17:32 Blood - Venous Blood Culture - Final No growth after 5 days. 05/24/22 17:32 Blood - Venous Blood Culture - Final No growth after 5 days. Procedures Date of Service Date of Service: 05/30/22 Assessment & Plan Assessment and plan (1) JOVANNY (acute kidney injury): Status: Acute Assessment and Plan: 71-year-old male with past medical history of liver cirrhosis status post transplant 7 years ago presents to the hospital with complaints of abdominal pain, nausea and vomiting. Pt found to have right colonic mass with plans to transfer to [facility]. SBO concerns patient passing flatus. 1. JOVANNY on CKD3, Cr BL near 2.0mg/dL Cr peaking 3.0mg/dL Cr today 2.4mg/dL Responded to IVF support CKD 2/2 Tacro Toxicity. Plan: - c/w Tac 1BID - aim for Tac trough in AM to be near 5-7 given CKD - Will order for 1L of LR today. Time Spent With Patient Time: Total time managing care of this patient today ____ minutes. Progress Note: Quality Stroke Does the patient have a stroke diagnosis?: No
[2022-05-30 11:16] LABS: Glucose, Whole Blood 166 mg/dL (60-115)
[2022-05-30] MEDS: Lactated Ringers 1,000 ML 100 ML IV (11:19)
[2022-05-30] MEDS: Heparin Sodium,Porcine 5,000 UNIT/ML VIAL 5000 UNIT SUBCUT ×2 (12:24→22:39)
[2022-05-30] MEDS: Morphine Sulfate 4 MG/ML CARTRIDGE IVPUSH ×2 (13:50→19:27)
[2022-05-30 14:21] VITALS: BMI 28.8
--- NOTE | 2022-05-30 14:28 | MHC.CLN ---
NUTRITION PPN RECOMMENDATION. NPO X 7 DAYS DUE TO SBO. STARTING PPN TODAY SINCE CONTINUES NPO. DAY 1 (05/30/22): PPN D10AA4.25 AT 40 ML PER HOUR. PROVIDES 490 KCALS, 41 G PROTEIN. REPLETE LYTES NEEDED. DAY 2 (05/31/22): PPN D10AA4.25 AT 60 ML PER HOUR. PROVIDES 734 KCALS, 61 G PROTEIN. REPLETE LYTES NEEDED. CHECK TRIGLYCERIDES. DAY 3 (06/01/22): MAX GOAL RATE PPN D10AA4.25 AT 83.33 ML PER HOUR. ADD LIPIDS 20 ML PER HOUR OF 20% LIPIDS. PROVIDES 1980 KCALS (23 KCALS/KG); 85 G PROTEIN (.99 G/KG). REPLETE LYTES NEEDED. MONITOR FOR REFEEDNG. FOLLOW PPN, LYTES, DIET ADVANCEMENT.
[2022-05-30 14:33] LABS: Albumin Level 3.7 g/dL (3.5-5.0); Magnesium 2.2 mg/dL (1.6-2.6)
[2022-05-30 15:58] VITALS: BP 171/86; PULSE 93; RESP 16; TEMP 36.6; O2SAT 97
--- NOTE | 2022-05-30 16:10 | MHC.CM.PN ---
OF THIS NOTE, NO KEPRO DETERMINATION RECEIVED. HOSPITALIST MADE AWARE
--- NOTE | 2022-05-30 16:11 | MHC.CM.PN ---
PER ROUNDS, PATIENT IS CLINICALLY ACCEPTED AT [facility]; HOWEVER, NO BED HAS BEEN OFFERED YET
[2022-05-30 16:43] LABS: Glucose, Whole Blood 150 mg/dL (60-115)
[2022-05-30 20:00] VITALS: BP 175/95; PULSE 100; RESP 17; TEMP 36.6; O2SAT 94
[2022-05-30 20:12] LABS: Glucose, Whole Blood 164 mg/dL (60-115)
[2022-05-30] MEDS: hydrALAZINE HCl 20 MG/ML VIAL 5 MG IVPUSH (20:41)
[2022-05-30 21:36] VITALS: BP 175/88
[2022-05-31] VITALS (7 sets, daily range): BP systolic 143–175; BP diastolic 76–93; PULSE 83–99; RESP 16–18; TEMP 36.3–36.7; O2SAT 92–95
[2022-05-31] MEDS: Piperacillin Sodium/Tazobactam 2.25 GM in 0.9 % Sodium Chloride 50 ML IV ×4 (01:20→18:23)
[2022-05-31] MEDS: Morphine Sulfate 4 MG/ML CARTRIDGE IVPUSH ×5 (01:26→19:00)
[2022-05-31 07:58] LABS: Glucose, Whole Blood 236 mg/dL (60-115)
[2022-05-31] MEDS: Insulin Lispro 100 UNIT/ML 3 ML VIAL SUBCUT ×4 (08:14→20:20)
[2022-05-31] MEDS: 0.9 % Sodium Chloride Flush 3 ML SYRINGE IVFLUSH ×2 (08:15→17:28)
--- NOTE | 2022-05-31 11:03 | HO.PM.IMPN ---
Subjective Subjective Date of Service: 05/31/22 Interval History: Continues to have abd discomfort, no signficant bm but passing gas Review of Systems says abd pain seems improving has some burpin denies any nausea or vomitin no fevers Physical Exam Vital Signs: Vital Signs: Last Vital Signs Temp 98.1 F 05/31/22 08:00 Pulse 94 05/31/22 08:00 Resp 18 05/31/22 08:00 BP 143/87 H 05/31/22 08:00 Pulse Ox 95 05/31/22 08:00 O2 Del Method 05/31/22 08:00 BMI result Body Mass Index 28.8 Const: Other: General: AO X 3, no acute distress Resp: CTA bilateral CVS: S1,S2,RRR GI: +BS, NT, no distention Skin: No rash Neuro: motor grossly intact Psych: appropriate affect Objective Data Active Medications Acetaminophen (Acetaminophen 325 Mg Tablet) 650 mg PO Q6H PRN PRN Reason: Pain, Mild (Pain Scale 1-3) Dextrose (Dextrose 50 % 25 Gm/50 Ml Syringe) 25 gm IVPUSH Q15M PRN; Protocol PRN Reason: per Hypoglycemia Standing Ord. Docusate Sodium (Docusate Sodium 100 Mg Capsule) 100 mg PO DAILY PRN PRN Reason: Constipation Ergocalciferol (Ergocalciferol (Vitamin D2) 1,250 Mcg Capsule) 1,250 mcg PO TH@0900 [facility] Last Admin: 05/29/22 09:12 Dose: 1,250 mcg Documented By: TIANNA Glucose (Glucose Gel 15 Gm Gel..Gram.) 15 gm PO Q15M PRN; Protocol PRN Reason: per Hypoglycemia Standing Ord. Heparin Sodium (Porcine) (Heparin Sodium,Porcine 5,000 Unit/Ml Vial) 5,000 unit SUBCUT Q12H [facility] Last Admin: 05/30/22 22:39 Dose: 5,000 unit Documented By: JOAQUÍN Hydralazine HCl (Hydralazine Hcl 20 Mg/Ml Vial) 5 mg IVPUSH Q6H PRN; Protocol PRN Reason: htn Last Admin: 05/30/22 20:41 Dose: 5 mg Documented By: JOAQUÍN Piperacillin Sod/Tazobactam (Sod 2.25 gm/ Sodium Chloride) 50 mls @ 100 mls/hr IV Q6H [facility] Last Infusion: 05/31/22 06:39 Dose: 0 mls/hr Documented By: JOAQUÍN Multivitamins 10 ml/ Trace Metals 1 ml/ Amino Acids/Electrolytes/Dextrose 960 mls @ 40 mls/hr IV DAILY@1800 [facility] Stop: 05/31/22 17:59 Last Admin: 05/30/22 19:58 Dose: 40 mls/hr Documented By: JOAQUÍN Insulin Glargine (Insulin Glargine,Hum.Rec.Anlog 100 Unit/Ml 10 Ml Vial) 24 unit SUBCUT BID [facility] Last Admin: 05/25/22 11:28 Dose: Not Given Documented By: SHEILA Non-Admin Reason: NPO Insulin Human Lispro (Insulin Lispro 100 Unit/Ml 3 Ml Vial) 0 unit SUBCUT QIDACHS [facility]; Protocol Last Admin: 05/31/22 08:14 Dose: 2 unit Documented By: AARON Morphine Sulfate (Morphine Sulfate 4 Mg/Ml Cartridge) 4 mg IVPUSH Q4H PRN; Protocol PRN Reason: Pain, Severe (Pain Scale 7-10) Last Admin: 05/31/22 10:13 Dose: 4 mg Documented By: AARON Ondansetron HCl (Ondansetron Hcl 4 Mg/2 Ml Vial) 4 mg IVPUSH Q8H PRN PRN Reason: Nausea and Vomiting Last Admin: 05/28/22 22:30 Dose: 4 mg Documented By: CRIS Pharmacy Consult (Consult Rx Perform Med Rec) 1 each MISCELLANE ONCE PRN PRN Reason: Consult order Sodium Chloride (0.9 % Sodium Chloride Flush 3 Ml Syringe) 3 ml IVFLUSH QSHIFT [facility] Last Admin: 05/31/22 08:15 Dose: 3 ml Documented By: AARON Tacrolimus (Tacrolimus 1 Mg Capsule) 1 mg PO BID [facility] Last Admin: 05/31/22 10:55 Dose: Not Given Documented By: AARON Non-Admin Reason: Patient Refused Labs 05/27/22 06:07 05/30/22 09:04 Labs: Laboratory Results - last 24 hr 05/30/22 05/30/22 05/30/22 09:04 11:13 16:01 POC Glucose 166 H 150 H Phosphorus 3.0 Magnesium 2.2 Albumin 3.7 05/30/22 05/31/22 20:08 07:53 POC Glucose 164 H 236 H Phosphorus Magnesium Albumin Assessment and Plan (1) JOVANNY (acute kidney injury): Status: Acute (2) Colon wall thickening: Status: Acute (3) Small bowel obstruction: Status: Acute (4) Intraabdominal mass: Status: Acute (5) Abdominal pain: Status: Acute (6) Leukocytosis: Status: Acute (7) Acidosis, lactic: Status: Acute Plan 71-year-old male with past medical history of liver cirrhosis status post transplant 7 years ago presents to the hospital with complaints of abdominal pain, nausea and vomiting Abdominal pain, colon mass, history of liver transplant at [facility]--?right colon mass by barium enema and on CT possibly a right colon cancer causing obstruction.? Surgery deemed complex and is recommended to be done at [facility], we are still waiting on bed for transfer acute lactic acidosis ?secondary to above improved? she with IV fluids # JOVANNY on CKD3, Cr at baseline, continue Tacro, # hypertension--home meds on hold, acceptable BP at this time # diabetes: fs [id number] hold lantus - low-dose sliding scale insulin adjusted -hold coverage below 200 mg/dl. # GERD - continue omeprazole # history of liver transplant ?on? tacrolimus,tacrolimus levels in am, follows up with dr david echeverria in [facility]. ?at this time most of his medications have been on hold except for tacrolimus given the small obstruction until further evaluated by surgery Nutrition; started on tpn 2/3 DVT prophylaxis heparin subQ inpatient need:sbo,possible mass -need bowel rest ,hydration ,may need ngt and possible colonscopy for ? colon mass /sbo . Time Spent With Patient Time: Total time managing care of this patient today ____ minutes. Quality Stroke Does the patient have a stroke diagnosis?: No VTE Prior VTE?: No VTE Risk Level:: Medical - moderate - high VTE Device Contraindication: Treatment Not Indicated VTE Drug Contraindication: N/A - Med Ordered
[2022-05-31 12:07] LABS: Anion Gap 16 (12-20); Blood Urea Nitrogen 39 mg/dL (9-16); Calcium 9.2 mg/dL (8.4-10.2); Carbon Dioxide 22 mmol/L (22-29); Chloride 110 mmol/L (96-108); Creatinine Clr Calc Pharmacy 32.6; Estimated Glomerular Filt Rate 29; Glucose Random 204 mg/dL (60-115); Magnesium 2.2 mg/dL (1.6-2.6); Phosphorus 3.1 mg/dL (2.7-4.5); Potassium 3.7 mmol/L (3.3-5.1); Sodium 144 mmol/L (135-145)
[2022-05-31 12:12] LABS: Glucose, Whole Blood 206 mg/dL (60-115)
[2022-05-31] MEDS: Heparin Sodium,Porcine 5,000 UNIT/ML VIAL 5000 UNIT SUBCUT (12:28)
--- NOTE | 2022-05-31 12:58 | P.PNNP_ITS ---
Subjective Subjective Date of Service: 05/31/22 Interval history: no acute events Physical Exam Vital Signs: Vital Signs: Last Vital Signs Temp 98.1 F 05/31/22 08:00 Pulse 94 05/31/22 08:00 Resp 18 05/31/22 08:00 BP 143/87 H 05/31/22 08:00 Pulse Ox 95 05/31/22 08:00 O2 Del Method 05/31/22 08:00 BMI result Body Mass Index 28.8 Const: Other: General: AO X 3, no acute distress Resp: CTA bilateral CVS: S1,S2,RRR GI: +BS, NT, no distention Skin: No rash Neuro: motor grossly intact Psych: appropriate affect Objective Data Labs 05/27/22 06:07 05/31/22 11:43 Labs: Laboratory Results - last 24 hr 05/30/22 05/30/22 05/30/22 09:04 16:01 20:08 Sodium Potassium Chloride Carbon Dioxide Anion Gap BUN Creatinine Estim Creat Clear Calc Estimated GFR POC Glucose 150 H 164 H Random Glucose Calcium Phosphorus 3.0 Magnesium 2.2 Albumin 3.7 05/31/22 05/31/22 05/31/22 07:53 11:43 12:08 Sodium 144 Potassium 3.7 Chloride 110 H Carbon Dioxide 22 Anion Gap 16 BUN 39 H Creatinine 2.25 H Estim Creat Clear Calc 32.6 Estimated GFR 29 POC Glucose 236 H 206 H Random Glucose 204 H Calcium 9.2 Phosphorus 3.1 Magnesium 2.2 Albumin Microbiology Microbiology Results: Microbiology 05/24/22 17:32 Blood - Venous Blood Culture - Final No growth after 5 days. 05/24/22 17:32 Blood - Venous Blood Culture - Final No growth after 5 days. Procedures Date of Service Date of Service: 05/31/22 Assessment & Plan Assessment and plan (1) JOVANNY (acute kidney injury): Status: Acute Assessment and Plan: 71-year-old male with past medical history of liver cirrhosis status post transplant 7 years ago presents to the hospital with complaints of abdominal pain, nausea and vomiting. Pt found to have right colonic mass with plans to transfer to [email or web address] SBO concerns patient passing flatus. 1. JOVANNY on CKD3, Cr BL near 2.0mg/dL Cr peaking 3.0mg/dL Cr today 2.25mg/dL Responded to IVF support CKD 2/2 Tacro Toxicity. Plan: - c/w Tac 1BID - aim for Tac trough in AM to be near 5-7 given CKD - IVF support when PO and intake is poor Time Spent With Patient Time: Total time managing care of this patient today ____ minutes. Progress Note: Quality Stroke Does the patient have a stroke diagnosis?: No
[2022-05-31] MEDS: hydrALAZINE HCl 20 MG/ML VIAL 5 MG IVPUSH (16:25)
[2022-05-31 16:46] LABS: Glucose, Whole Blood 208 mg/dL (60-115)
[2022-05-31 20:18] LABS: Glucose, Whole Blood 236 mg/dL (60-115)
[2022-05-31] MEDS: Tacrolimus 1 MG CAPSULE PO (20:21)
[2022-06-01] MEDS: Piperacillin Sodium/Tazobactam 2.25 GM in 0.9 % Sodium Chloride 50 ML IV ×4 (00:06→17:29)
[2022-06-01] MEDS: Heparin Sodium,Porcine 5,000 UNIT/ML VIAL 5000 UNIT SUBCUT ×3 (00:06→22:00)
[2022-06-01] MEDS: 0.9 % Sodium Chloride Flush 3 ML SYRINGE IVFLUSH ×2 (00:06→08:29)
[2022-06-01] MEDS: Morphine Sulfate 4 MG/ML CARTRIDGE IVPUSH ×5 (00:13→21:50)
[2022-06-01 04:00] VITALS: BP 160/84; PULSE 100; RESP 18; TEMP 37; O2SAT 94
[2022-06-01 08:00] VITALS: BP 153/81; PULSE 95; RESP 18; TEMP 36.5; O2SAT 94
[2022-06-01 08:14] LABS: Glucose, Whole Blood 284 mg/dL (60-115)
[2022-06-01] MEDS: Tacrolimus 1 MG CAPSULE PO ×2 (08:29→21:43)
[2022-06-01] MEDS: Insulin Lispro 100 UNIT/ML 3 ML VIAL SUBCUT ×2 (08:29→21:43)
--- NOTE | 2022-06-01 08:38 | P.PNIM_ITS ---
Subjective Subjective Date of Service: 06/01/22 Interval History: f/u on sbo, passing flattus but no bm, +n/v and spitting Physical Exam Vital Signs: Vital Signs: Last Vital Signs Temp 98.6 F 06/01/22 04:00 Pulse 100 06/01/22 04:00 Resp 18 06/01/22 04:00 BP 160/84 H 06/01/22 04:00 Pulse Ox 94 06/01/22 04:00 O2 Del Method 06/01/22 04:00 BMI result Body Mass Index 28.8 Const: Other: General: AO X 3, no acute distress Resp: CTA bilateral CVS: S1,S2,RRR GI: faint bowel sounds, NT, mild distention Skin: No rash Neuro: motor grossly intact Psych: appropriate affect Objective Data Active Medications Acetaminophen (Acetaminophen 325 Mg Tablet) 650 mg PO Q6H PRN PRN Reason: Pain, Mild (Pain Scale 1-3) Dextrose (Dextrose 50 % 25 Gm/50 Ml Syringe) 25 gm IVPUSH Q15M PRN; Protocol PRN Reason: per Hypoglycemia Standing Ord. Docusate Sodium (Docusate Sodium 100 Mg Capsule) 100 mg PO DAILY PRN PRN Reason: Constipation Ergocalciferol (Ergocalciferol (Vitamin D2) 1,250 Mcg Capsule) 1,250 mcg PO TH@0900 [facility] Last Admin: 05/29/22 09:12 Dose: 1,250 mcg Documented By: TIANNA Glucose (Glucose Gel 15 Gm Gel..Gram.) 15 gm PO Q15M PRN; Protocol PRN Reason: per Hypoglycemia Standing Ord. Heparin Sodium (Porcine) (Heparin Sodium,Porcine 5,000 Unit/Ml Vial) 5,000 unit SUBCUT Q12H [facility] Last Admin: 06/01/22 00:06 Dose: 5,000 unit Documented By: JOAQUÍN Hydralazine HCl (Hydralazine Hcl 20 Mg/Ml Vial) 5 mg IVPUSH Q6H PRN; Protocol PRN Reason: htn Last Admin: 05/31/22 16:25 Dose: 5 mg Documented By: AARON Piperacillin Sod/Tazobactam (Sod 2.25 gm/ Sodium Chloride) 50 mls @ 100 mls/hr IV Q6H [facility] Last Infusion: 06/01/22 06:52 Dose: 0 mls/hr Documented By: JOAQUÍN Multivitamins 14 ml/ Trace Metals 1.4 ml/ Amino Acids/Electrolytes/Dextrose 1,440 mls @ 60 mls/hr IV DAILY@1800 [facility] Stop: 06/01/22 17:59 Last Admin: 05/31/22 18:24 Dose: 60 mls/hr Documented By: JOAQUÍN Insulin Glargine (Insulin Glargine,Hum.Rec.Anlog 100 Unit/Ml 10 Ml Vial) 24 unit SUBCUT BID [facility] Last Admin: 05/25/22 11:28 Dose: Not Given Documented By: SHEILA Non-Admin Reason: NPO Insulin Human Lispro (Insulin Lispro 100 Unit/Ml 3 Ml Vial) 0 unit SUBCUT QIDACHS [facility]; Protocol Last Admin: 06/01/22 08:29 Dose: 6 unit Documented By: FRANCHESKA Morphine Sulfate (Morphine Sulfate 4 Mg/Ml Cartridge) 4 mg IVPUSH Q4H PRN; Protocol PRN Reason: Pain, Severe (Pain Scale 7-10) Last Admin: 06/01/22 06:15 Dose: 4 mg Documented By: JOAQUÍN Ondansetron HCl (Ondansetron Hcl 4 Mg/2 Ml Vial) 4 mg IVPUSH Q8H PRN PRN Reason: Nausea and Vomiting Last Admin: 05/28/22 22:30 Dose: 4 mg Documented By: CRIS Pharmacy Consult (Consult Rx Perform Med Rec) 1 each MISCELLANE ONCE PRN PRN Reason: Consult order Sodium Chloride (0.9 % Sodium Chloride Flush 3 Ml Syringe) [facility] Admin: 06/01/22 08:29 Dose: 3 ml Documented By: FRANCHESKA Tacrolimus (Tacrolimus 1 Mg Capsule) 1 mg PO BID [facility] Last Admin: 06/01/22 08:29 Dose: 1 mg Documented By: FRANCHESKA Labs 05/27/22 06:07 05/31/22 11:43 Labs: Laboratory Results - last 24 hr 05/31/22 05/31/22 05/31/22 11:43 12:08 16:42 Anion Gap 16 Estim Creat Clear Calc 32.6 Estimated GFR 29 POC Glucose 206 H 208 H Random Glucose 204 H Calcium 9.2 Phosphorus 3.1 Magnesium 2.2 05/31/22 06/01/22 20:14 07:45 Anion Gap Estim Creat Clear Calc Estimated GFR POC Glucose 236 H 284 H Random Glucose Calcium Phosphorus Magnesium Assessment and Plan (1) JOVANNY (acute kidney injury): Status: Acute (2) Colon wall thickening: Status: Acute (3) Small bowel obstruction: Status: Acute (4) Intraabdominal mass: Status: Acute (5) Abdominal pain: Status: Acute (6) Leukocytosis: Status: Acute (7) Acidosis, lactic: Status: Acute Plan 71-year-old male with past medical history of liver cirrhosis status post transplant 7 years ago presents to the hospital with complaints of abdominal pain, nausea and vomiting Abdominal pain, colon mass, history of liver transplant at [facility]--?right colon mass by barium enema and on CT possibly a right colon cancer causing obstruction.? Surgery deemed complex and is recommended to be done at [facility], we are still waiting on bed for transfer. Continue NPO, no indication for NGT Accute lactic acidosis ?secondary to above improved? she with IV fluids # JOVANNY on CKD3, Cr at baseline 2.+ and flat, continue Tacro, # hypertension--home meds on hold, acceptable BP at this time, IV meds if needed for control # diabetes: SSI # GERD - continue omeprazole (liquid) # history of liver transplant ?on? tacrolimus,tacrolimus ?at this time most of his medications have been on hold except for tacrolimus given sbo Nutrition; started on tpn 2/3 DVT prophylaxis heparin subQ inpatient need:sbo,possible mass -need bowel rest ,hydration ,may need ngt and possible colonscopy for ? colon mass /sbo . Time Spent With Patient Time: Total time managing care of this patient today ____ minutes. Quality Stroke Does the patient have a stroke diagnosis?: No VTE Prior VTE?: No VTE Risk Level:: Medical - moderate - high VTE Device Contraindication: Treatment Not Indicated VTE Drug Contraindication: N/A - Med Ordered
[2022-06-01 08:45] LABS: Triglycerides 155 mg/dL
[2022-06-01 08:48] LABS: Albumin Level 3.4 g/dL (3.5-5.0); Anion Gap 16 (12-20); Blood Urea Nitrogen 43 mg/dL (9-16); Calcium 8.8 mg/dL (8.4-10.2); Carbon Dioxide 23 mmol/L (22-29); Chloride 109 mmol/L (96-108); Creatinine Clr Calc Pharmacy 28.5; Estimated Glomerular Filt Rate 25; Glucose Random 275 mg/dL (60-115); Magnesium 2.1 mg/dL (1.6-2.6); Phosphorus 3.8 mg/dL (2.7-4.5); Potassium 3.6 mmol/L (3.3-5.1); Sodium 144 mmol/L (135-145)
--- NOTE | 2022-06-01 10:30 | P.PNNP_ITS ---
Subjective Subjective Date of Service: 06/01/22 Interval history: some nausea vomiting Cr responsive to IVF Cr up after stopping iVF ongoing poor intake Physical Exam Vital Signs: Vital Signs: Last Vital Signs Temp 97.7 F 06/01/22 08:00 Pulse 95 06/01/22 08:00 Resp 18 06/01/22 08:00 BP 153/81 H 06/01/22 08:00 Pulse Ox 94 06/01/22 08:00 O2 Del Method 06/01/22 08:00 BMI result Body Mass Index 28.8 Const: Other: General: AO X 3, no acute distress Resp: CTA bilateral CVS: S1,S2,RRR GI: +BS, NT, no distention Skin: No rash Neuro: motor grossly intact Psych: appropriate affect Objective Data Labs 05/27/22 06:07 06/01/22 08:05 Labs: Laboratory Results - last 24 hr 05/31/22 05/31/22 05/31/22 11:43 12:08 16:42 Sodium 144 Potassium 3.7 Chloride 110 H Carbon Dioxide 22 Anion Gap 16 BUN 39 H Creatinine 2.25 H Estim Creat Clear Calc 32.6 Estimated GFR 29 POC Glucose 206 H 208 H Random Glucose 204 H Calcium 9.2 Phosphorus 3.1 Magnesium 2.2 Albumin Triglycerides 05/31/22 06/01/22 06/01/22 20:14 07:45 08:05 Sodium 144 Potassium 3.6 Chloride 109 H Carbon Dioxide 23 Anion Gap 16 BUN 43 H Creatinine 2.57 H Estim Creat Clear Calc 28.5 Estimated GFR 25 POC Glucose 236 H 284 H Random Glucose 275 H Calcium 8.8 Phosphorus 3.8 Magnesium 2.1 Albumin 3.4 L Triglycerides 06/01/22 08:05 Sodium Potassium Chloride Carbon Dioxide Anion Gap BUN Creatinine Estim Creat Clear Calc Estimated GFR POC Glucose Random Glucose Calcium Phosphorus Magnesium Albumin Triglycerides 155 Microbiology Microbiology Results: Microbiology 05/24/22 17:32 Blood - Venous Blood Culture - Final No growth after 5 days. 05/24/22 17:32 Blood - Venous Blood Culture - Final No growth after 5 days. Procedures Date of Service Date of Service: 06/01/22 Assessment & Plan Assessment and plan (1) JOVANNY (acute kidney injury): Status: Acute Assessment and Plan: 71-year-old male with past medical history of liver cirrhosis status post transplant 7 years ago presents to the hospital with complaints of abdominal pain, nausea and vomiting. Pt found to have right colonic mass with plans to transfer to [facility]. This admission with ongoing SBO, leading to JOVANNY hemodynamic. 1. JOVANNY on CKD3, Cr BL near 2.0mg/dL Cr peaking 3.0mg/dL Cr This admission 2.0-2.5 off and on IVF support. Responded to IVF support CKD 2/2 Tacro Toxicity. Plan: - c/w Tac 1BID - aim for Tac trough in AM to be near 5-7 given CKD - Will order LR 125cc/hr for 24 hours Time Spent With Patient Time: Total time managing care of this patient today ____ minutes. Progress Note: Quality Stroke Does the patient have a stroke diagnosis?: No
--- NOTE | 2022-06-01 11:22 | PM.PNGS ---
Subjective Subjective Date of Service: 06/01/22 Patient reports: no new complaints, feels better, tolerating a regular diet, flatus and bowel movement Interval history: The patient is seen walking in the halls. He is progressed and denies abdominal pain. He is tolerating his diet and would like it advanced so he can be discharged. Physical Exam Vital Signs: Vital Signs: Last Vital Signs Temp 97.7 F 06/01/22 08:00 Pulse 95 06/01/22 08:00 Resp 18 06/01/22 08:00 BP 153/81 H 06/01/22 08:00 Pulse Ox 94 06/01/22 08:00 O2 Del Method 06/01/22 08:00 BMI result Body Mass Index 28.8 On exam he is nontoxic Objective Data Active Medications Acetaminophen (Acetaminophen 325 Mg Tablet) 650 mg PO Q6H PRN PRN Reason: Pain, Mild (Pain Scale 1-3) Dextrose (Dextrose 50 % 25 Gm/50 Ml Syringe) 25 gm IVPUSH Q15M PRN; Protocol PRN Reason: per Hypoglycemia Standing Ord. Docusate Sodium (Docusate Sodium 100 Mg Capsule) 100 mg PO DAILY PRN PRN Reason: Constipation Ergocalciferol (Ergocalciferol (Vitamin D2) 1,250 Mcg Capsule) 1,250 mcg PO TH@0900 [facility] Last Admin: 05/29/22 09:12 Dose: 1,250 mcg Documented By: TIANNA Glucose (Glucose Gel 15 Gm Gel..Gram.) 15 gm PO Q15M PRN; Protocol PRN Reason: per Hypoglycemia Standing Ord. Heparin Sodium (Porcine) (Heparin Sodium,Porcine 5,000 Unit/Ml Vial) 5,000 unit SUBCUT Q12H [facility] Last Admin: 06/01/22 00:06 Dose: 5,000 unit Documented By: JOAQUÍN Hydralazine HCl (Hydralazine Hcl 20 Mg/Ml Vial) 5 mg IVPUSH Q6H PRN; Protocol PRN Reason: htn Last Admin: 05/31/22 16:25 Dose: 5 mg Documented By: AARON Piperacillin Sod/Tazobactam (Sod 2.25 gm/ Sodium Chloride) 50 mls @ 100 mls/hr IV Q6H [facility] Last Infusion: 06/01/22 06:52 Dose: 0 mls/hr Documented By: JOAQUÍN Multivitamins 14 ml/ Trace Metals 1.4 ml/ Amino Acids/Electrolytes/Dextrose 1,440 mls @ 60 mls/hr IV DAILY@1800 [facility] Stop: 06/01/22 17:59 Last Admin: 05/31/22 18:24 Dose: 60 mls/hr Documented By: JOAQUÍN Lactated Ringer's (Lr) 1,000 mls @ 125 mls/hr IVCONT .Q8H [facility] Stop: 06/02/22 09:00 Insulin Glargine (Insulin Glargine,Hum.Rec.Anlog 100 Unit/Ml 10 Ml Vial) 24 unit SUBCUT BID [facility] Last Admin: 05/25/22 11:28 Dose: Not Given Documented By: SHEILA Non-Admin Reason: NPO Insulin Human Lispro (Insulin Lispro 100 Unit/Ml 3 Ml Vial) 0 unit SUBCUT QIDACHS [facility]; Protocol Last Admin: 06/01/22 11:20 Dose: Not Given Documented By: FRANCHESKA Non-Admin Reason: No Insulin Coverage Morphine Sulfate (Morphine Sulfate 4 Mg/Ml Cartridge) 4 mg IVPUSH Q4H PRN; Protocol PRN Reason: Pain, Severe (Pain Scale 7-10) Last Admin: 06/01/22 06:15 Dose: 4 mg Documented By: JOAQUÍN Omeprazole (Omeprazole 20 Mg/10 Ml Susp.Recon) 20 mg PO DAILY@0630 [facility] Last Admin: 06/01/22 09:44 Dose: 20 mg Documented By: FRANCHESKA Ondansetron HCl (Ondansetron Hcl 4 Mg/2 Ml Vial) 4 mg IVPUSH Q8H PRN PRN Reason: Nausea and Vomiting Last Admin: 05/28/22 22:30 Dose: 4 mg Documented By: CRIS Pharmacy Consult (Consult Rx Perform Med Rec) 1 each MISCELLANE ONCE PRN PRN Reason: Consult order Sodium Chloride (0.9 % Sodium Chloride Flush 3 Ml Syringe) 3 ml IVFLUSH QSHIFT [facility] Last Admin: 06/01/22 08:29 Dose: 3 ml Documented By: FRANCHESKA Tacrolimus (Tacrolimus 1 Mg Capsule) 1 mg PO BID [facility] Last Admin: 06/01/22 08:29 Dose: 1 mg Documented By: FRANCHESKA Labs 05/27/22 06:07 06/01/22 08:05 Labs: Laboratory Results - last 24 hr 05/31/22 05/31/22 05/31/22 11:43 12:08 16:42 Anion Gap 16 Estim Creat Clear Calc 32.6 Estimated GFR 29 POC Glucose 206 H 208 H Random Glucose 204 H Calcium 9.2 Phosphorus 3.1 Magnesium 2.2 Albumin Triglycerides 05/31/22 06/01/22 06/01/22 20:14 07:45 08:05 Anion Gap 16 Estim Creat Clear Calc 28.5 Estimated GFR 25 POC Glucose 236 H 284 H Random Glucose 275 H Calcium 8.8 Phosphorus 3.8 Magnesium 2.1 Albumin 3.4 L Triglycerides 06/01/22 08:05 Anion Gap Estim Creat Clear Calc Estimated GFR POC Glucose Random Glucose Calcium Phosphorus Magnesium Albumin Triglycerides 155 Procedures Date of Service Date of Service: 06/01/22 Progress Note: A&P Assessment and plan (1) Small bowel obstruction: Status: Acute Plan The patient has improved clinically and is in agreement for diet advancement and discharge. Time Spent With Patient Time: Total time managing care of this patient today ____ minutes. Quality Stroke Does the patient have a stroke diagnosis?: No VTE Prior VTE?: No VTE Risk Level:: Medical - moderate - high VTE Device Contraindication: Treatment Not Indicated VTE Drug Contraindication: N/A - Med Ordered
[2022-06-01 11:32] VITALS: RESP 14
[2022-06-01 11:33] LABS: Glucose, Whole Blood 184 mg/dL (60-115)
[2022-06-01] MEDS: Lactated Ringers 1,000 ML 125 ML IVCONT (12:16)
[2022-06-01 16:00] VITALS: BP 170/94; PULSE 100; RESP 16; TEMP 36.9; O2SAT 95
[2022-06-01 16:35] LABS: Glucose, Whole Blood 163 mg/dL (60-115)
[2022-06-01] MEDS: Fat Emulsions 20% 250 ML 20 ML IVCONT (17:54)
[2022-06-01 19:34] VITALS: BP 164/88; PULSE 93; RESP 16; TEMP 36.9; O2SAT 94
[2022-06-01 20:22] LABS: Glucose, Whole Blood 257 mg/dL (60-115)
[2022-06-01 21:50] VITALS: RESP 16
[2022-06-02] MEDS: Piperacillin Sodium/Tazobactam 2.25 GM in 0.9 % Sodium Chloride 50 ML IV ×4 (00:23→18:06)
[2022-06-02] MEDS: 0.9 % Sodium Chloride Flush 3 ML SYRINGE IVFLUSH ×3 (00:59→22:02)
[2022-06-02 01:51] VITALS: RESP 18
[2022-06-02] MEDS: Morphine Sulfate 4 MG/ML CARTRIDGE IVPUSH ×4 (01:51→17:56)
[2022-06-02 04:00] VITALS: BP 146/80; PULSE 95; RESP 18; TEMP 36.9; O2SAT 93
[2022-06-02] MEDS: Fat Emulsions 20% 250 ML 20 ML IVCONT ×2 (05:58→18:11)
[2022-06-02 07:40] LABS: Glucose, Whole Blood 272 mg/dL (60-115)
[2022-06-02 08:00] VITALS: BP 166/84; PULSE 94; RESP 18; TEMP 36.6; O2SAT 94
[2022-06-02] MEDS: Insulin Lispro 100 UNIT/ML 3 ML VIAL SUBCUT ×2 (08:30→22:01)
[2022-06-02] MEDS: Tacrolimus 1 MG CAPSULE PO ×2 (08:30→20:47)
[2022-06-02 08:33] LABS: Albumin Level 3.1 g/dL (3.5-5.0); Anion Gap 14 (12-20); Blood Urea Nitrogen 42 mg/dL (9-16); Calcium 8.5 mg/dL (8.4-10.2); Carbon Dioxide 25 mmol/L (22-29); Chloride 107 mmol/L (96-108); Creatinine Clr Calc Pharmacy 30.3; Estimated Glomerular Filt Rate 27; Glucose Random 298 mg/dL (60-115); Phosphorus 3.7 mg/dL (2.7-4.5); Potassium 3.7 mmol/L (3.3-5.1); Sodium 142 mmol/L (135-145)
--- NOTE | 2022-06-02 09:52 | MHC.CLN ---
F/U CONTINUES NPO DUE TO SBO. PPN STARTED 05/30 AND ADVANCED TO MAX GOAL RATE 06/01/22. MAX GOAL RATE PPN D10AA4.25 AT 83.33 ML PER HOUR. ADD LIPIDS 20 ML PER HOUR OF 20% LIPIDS. PROVIDES 1980 KCALS (23 KCALS/KG); 85 G PROTEIN (.99 G/KG). REPLETE LYTES NEEDED. PBUYC=149 ON 06/01. FOLLOW PPN, LYTES, AND POSSIBLE DIET ADVANCEMENT.
--- NOTE | 2022-06-02 10:27 | P.PNNP_ITS ---
Subjective Subjective Date of Service: 06/03/22 Interval history: Events noted Physical Exam Vital Signs: Vital Signs: Last Vital Signs Temp 97.8 F 06/02/22 08:00 Pulse 94 06/02/22 08:00 Resp 18 06/02/22 08:00 BP 166/84 H 06/02/22 08:00 Pulse Ox 94 06/02/22 08:00 O2 Del Method 06/02/22 08:00 BMI result Body Mass Index 28.8 Const: Other: General: AO X 3, no acute distress Resp: CTA bilateral CVS: S1,S2,RRR GI: +BS, NT, no distention Skin: No rash Neuro: motor grossly intact Psych: appropriate affect General: cooperative and no acute distress Nutritional Appearance: well nourished Orientation/consciousness: patient oriented x3 Limitations: no limitations HEENT: Head: Yes normocephalic and Yes atraumatic Ears: hearing grossly normal bilaterally Mouth: Normal oral and palatal mucosa present Eyes: General: appearance normal, both eyes and all related structures EOM: EOMs intact bilaterally Neck: Neck: Yes supple Resp: Effort & Inspection: normal respiratory effort, no audible wheezes, no cough and no respiratory distress Auscultation: clear to auscultation bilaterally and diminished lung sounds Cardio: Jugular venous distension: no JVD Rate: regular rate Rhythm: regular rhythm GI: Inspection: Yes normal to inspection, Yes distended, Yes incision and Yes Abdominal panniculus present Palpation (GI): Soft to palpation, Tenderness to palpation present (GI) in the RUQ; with no rebound tenderness and Rovsing's sign negative, no guarding, not rigid and Hernia present ( Incisional hernia in upper abdomen chevron incision) Percussion: Yes tympanic to percussion Auscultation: normal bowel sounds Skin: General skin exam: no rashes or lesions noted Neuro: General: patient oriented x3 Cognition (Neuro): normal cognition Extrem: General: Yes normal to inspection, Yes no clubbing, cyanosis or edema and Yes no pedal edema Objective Data Labs 05/27/22 06:07 06/02/22 08:04 Labs: Laboratory Results - last 24 hr 06/01/22 06/01/22 06/01/22 11:18 16:31 20:10 Sodium Potassium Chloride Carbon Dioxide Anion Gap BUN Creatinine Estim Creat Clear Calc Estimated GFR POC Glucose 184 H 163 H 257 H Random Glucose Calcium Phosphorus Magnesium Albumin 06/02/22 06/02/22 07:36 08:04 Sodium 142 Potassium 3.7 Chloride 107 Carbon Dioxide 25 Anion Gap 14 BUN 42 H Creatinine 2.42 H Estim Creat Clear Calc 30.3 Estimated GFR 27 POC Glucose 272 H Random Glucose 298 H Calcium 8.5 Phosphorus 3.7 Magnesium 2.0 Albumin 3.1 L Microbiology Microbiology Results: Microbiology 05/24/22 17:32 Blood - Venous Blood Culture - Final No growth after 5 days. 05/24/22 17:32 Blood - Venous Blood Culture - Final No growth after 5 days. Procedures Date of Service Date of Service: 06/02/22 Assessment & Plan Assessment and plan (1) JOVANNY (acute kidney injury): Status: Acute Assessment and Plan: 71-year-old male with a history of liver cirrhosis status post transplant 7 years ago presents to the hospital with complaints of abdominal pain, nausea and vomiting. Pt found to have right colonic mass with plans to transfer to [facility]. This admission with ongoing SBO, leading to JOVANNY hemodynamic. 1. JOVANNY on CKD3, Cr BL near 2.0mg/dL Cr peaking 3.0mg/dL Cr This admission 2.0-2.5 off and on IVF support. Responded to IVF support . Plan: - c/w Tac 1BID - aim for Tac trough in AM to be near 5-7 given CKD - Keep I > O Repeat Tacro level Time Spent With Patient Time: Total time managing care of this patient today ____ minutes. Progress Note: Quality Stroke Does the patient have a stroke diagnosis?: No
[2022-06-02] MEDS: Heparin Sodium,Porcine 5,000 UNIT/ML VIAL 5000 UNIT SUBCUT ×2 (10:38→22:02)
--- NOTE | 2022-06-02 10:57 | MHC.CM.PN ---
STILL WAITINGG FOR A BED FROM [facility]
[2022-06-02 11:14] LABS: Glucose, Whole Blood 168 mg/dL (60-115)
--- NOTE | 2022-06-02 13:59 | P.PNGI_ITS ---
Subjective Subjective Date of Service: 06/02/22 Critical Care Time (minutes): 0 Comment: Pt seen and evaluated at bedside. Reports that has been able to pass gas for 3-4 days now. Doing okay with ice chips and sips of water however was also noted to be frequently spitting up bilious contents in an emesis bag. No beds at [facility] still as per communication with Dr Cantu. Physical Exam Vital Signs: Vital Signs: Last Vital Signs Temp 97.8 F 06/02/22 08:00 Pulse 94 06/02/22 08:00 Resp 18 06/02/22 08:00 BP 166/84 H 06/02/22 08:00 Pulse Ox 94 06/02/22 08:00 O2 Del Method 06/02/22 08:00 BMI result Body Mass Index 28.8 gen appear:NAD Abd: soft, mildly tender, distended Objective Data Labs 05/27/22 06:07 06/02/22 08:04 Labs: Laboratory Results - last 24 hr 06/01/22 06/01/22 06/02/22 16:31 20:10 07:36 Sodium Potassium Chloride Carbon Dioxide Anion Gap BUN Creatinine Estim Creat Clear Calc Estimated GFR POC Glucose 163 H 257 H 272 H Random Glucose Calcium Phosphorus Magnesium Albumin 06/02/22 06/02/22 08:04 11:09 Sodium 142 Potassium 3.7 Chloride 107 Carbon Dioxide 25 Anion Gap 14 BUN 42 H Creatinine 2.42 H Estim Creat Clear Calc 30.3 Estimated GFR 27 POC Glucose 168 H Random Glucose 298 H Calcium 8.5 Phosphorus 3.7 Magnesium 2.0 Albumin 3.1 L Microbiology Microbiology Results: Microbiology 05/24/22 17:32 Blood - Venous Blood Culture - Final No growth after 5 days. 05/24/22 17:32 Blood - Venous Blood Culture - Final No growth after 5 days. Procedures Date of Service Date of Service: 06/02/22 Progress Note: A&P Assessment and plan (1) Small bowel obstruction: Status: Acute (2) Abdominal pain: Status: Acute (3) Colon wall thickening: Status: Acute Plan Will likely need surgical intervention at [facility] [place] [place] given no beds at [facility] and this is his day 9 of admission[address]iscuss[address] with Dr Cadet and endoscopic evaluation prior to surgery would be preferable. Although pt reports passing flatus, hes noted to be spitting up bilious contents frequently. I am still concerned that his SBO is complete and he may not be able to tolerate 4L of prep for diagnostic colonoscopy. Will trial liberalised CLD and if able to tolerate that without N/V, will start goLYTELY prep tomorrow for colonoscopy tentatively Thursday. Time Spent With Patient Time: Total time managing care of this patient today ____ minutes. Quality Stroke Does the patient have a stroke diagnosis?: No VTE Prior VTE?: No VTE Risk Level:: Medical - moderate - high VTE Device Contraindication: Treatment Not Indicated VTE Drug Contraindication: N/A - Med Ordered
[2022-06-02 15:54] VITALS: BP 160/74; PULSE 87; RESP 17; TEMP 36.7; O2SAT 96
[2022-06-02 16:43] LABS: Glucose, Whole Blood 267 mg/dL (60-115)
[2022-06-02 20:00] VITALS: BP 155/88; PULSE 93; RESP 18; TEMP 36.2; O2SAT 97
[2022-06-02 21:25] LABS: Glucose, Whole Blood 290 mg/dL (60-115)
[2022-06-03] MEDS: Piperacillin Sodium/Tazobactam 2.25 GM in 0.9 % Sodium Chloride 50 ML IV ×2 (00:43→05:42)
[2022-06-03] MEDS: Morphine Sulfate 4 MG/ML CARTRIDGE IVPUSH ×2 (02:01→06:44)
[2022-06-03 03:21] VITALS: BP 149/69; PULSE 88; RESP 18; TEMP 36.8; O2SAT 95
[2022-06-03] MEDS: Fat Emulsions 20% 250 ML 20 ML IVCONT (05:37)
[2022-06-03] MEDS: 0.9 % Sodium Chloride Flush 3 ML SYRINGE IVFLUSH (05:39)
[2022-06-03 07:04] LABS: Glucose, Whole Blood 245 mg/dL (60-115)
[2022-06-03] MEDS: Insulin Lispro 100 UNIT/ML 3 ML VIAL SUBCUT (07:06)
[2022-06-03 07:40] VITALS: BP 147/68; PULSE 83; RESP 18; TEMP 36.8; O2SAT 93
[2022-06-03 08:35] LABS: Albumin Level 2.9 g/dL (3.5-5.0); Anion Gap 16 (12-20); Blood Urea Nitrogen 40 mg/dL (9-16); Calcium 8.2 mg/dL (8.4-10.2); Carbon Dioxide 21 mmol/L (22-29); Chloride 109 mmol/L (96-108); Creatinine Clr Calc Pharmacy 31.5; Estimated Glomerular Filt Rate 28; Glucose Random 246 mg/dL (60-115); Magnesium 1.9 mg/dL (1.6-2.6); Phosphorus 3.7 mg/dL (2.7-4.5); Potassium 3.5 mmol/L (3.3-5.1); Sodium 142 mmol/L (135-145); Triglycerides 177 mg/dL
--- NOTE | 2022-06-03 10:39 | P.DS_ITS ---
DS: Providers Provider Date of Service: 06/03/22 Date of admission: 05/24/22 22:35 Primary care physician: Millie Coburn MD Consults: 05/24/22 22:33 Consult to General Surgery Routine Consulting Provider: Christopher Cadet Reason for consultation: paracolic collection , seroma?, sbo Has provider been notified: No 05/25/22 08:26 Consult to Nephrology Routine Consulting Provider: Mario Ortez Reason for consultation: jovanny vs ckd Has provider been notified: No 05/25/22 10:32 Consult to Gastroenterology Routine Consulting Provider: [facility] Reason for consultation: Bowel obstruction, possible right colon mass. DS: Diagnosis Discharge Diagnosis (1) JOVANNY (acute kidney injury): Status: Acute DS: Summary Hospital Course Hospital Course: Chief Complaint: abd pain 71-year-old male with past medical history of liver transplant to alcohol abuse 7 years ago, hypertension, diabetes, GERD, BPH presents the hospital with complaints of abdominal pain.? He reports that abdominal pain is been going on for several days but worsened today.? He reports the abdominal pain to be diffuse, and the pain sometimes moves around in his belly, pain is 10/10, is associated with nausea and an episode of vomiting in the ambulance.? Patient reports no fever no chills, worse with eating, no relieving factors.? On arrival to the ED patient hemodynamically stable with no significant abnormal vitals Labs are significant for WBC count of 12.2, hemoglobin of 13.2, BUN of 25, creatinine of 3.05 with no baseline for comparison, lactic acid of 2.9 improved after IV fluids, UA negative CT of the abdomen pelvic shows postsurgical changes in the right border hepatocytes and right diaphragmatic alfredo likely from lymph node dissection, there is a moderate size mass or filling defect involving a long segment of right colon with pericolic lymphadenopathy and soft tissue mass, focal pericolic collection likely a seroma from old intervention After having a chest x-ray done patient then developed worsening pain with distension, a KUB was done which showed multiple mildly to moderately dilated gas-filled loops of small bowel suspicious for small bowel obstruction Patient reports last bowel movement was the day prior to presentation. Patient started on IV antibiotics he will be admitted for further management Hospital course: Patient presented with abdominal pain and workup revealed with CT revealed a probable right colon mass highly suspicious for colon cancer. Similar ?right colon mass was noted on barium enema. Patient was made NPO and was evaluated by Surgery (Dr. Cadet) and surgical exploration deemed complex and better suited at tertiary care center as such a referal was made to [facility] and patient was accepted in transfer but took over a week for a bed to become available. In the interim patient was maintained on NPO but no NGT, he reported having flatus but never a bowel movment. He was eventually started on PPN as well and bed finally became available at [facility] today and was transfered. Accute lactic acidosis d/t above there was no evidence of bowel necrosis and improved with hydraion. # JOVANNY on CKD3, Cr at baseline 2.+ and flat, was followed b Nephrology and was continued on Tacrolimus # hypertension--home meds were on hold and never needed IV meds # diabetes: SSI # GERD - continue omeprazole (liquid) # history of liver transplant ?on? tacrolimus ?at this time most of his medications have been on hold except for tacrolimus given sbo Nutrition; started on PPN 2/3 Time Spent with Patient Time attestation: Total time managing care of this patient today ____ minutes. Discharge coordination time: Greater than 30 minutes Quality: Safe Use of Opioids Does Pt have an Active Cancer Diagnosis on the Problem List?: No Quality: Stroke Does the patient have a stroke diagnosis?: No Physical Exam Vital Signs: Vital Signs: Last Vital Signs Temp 98.3 F 06/03/22 07:40 Pulse 83 06/03/22 07:40 Resp 18 06/03/22 07:40 BP 147/68 H 06/03/22 07:40 Pulse Ox 93 06/03/22 07:40 O2 Del Method 06/03/22 07:40 BMI result Body Mass Index 28.8 Const: Other: unchangerd from 06/02 DS: Data Data Completed and Pending Labs on day of discharge: Laboratory Results - last 24 hr 06/02/22 06/02/22 06/02/22 11:09 16:28 21:17 Sodium Potassium Chloride Carbon Dioxide Anion Gap BUN Creatinine Estim Creat Clear Calc Estimated GFR POC Glucose 168 H 267 H 290 H Random Glucose Calcium Phosphorus Magnesium Albumin Triglycerides 06/03/22 06/03/22 06:55 07:48 Sodium 142 Potassium 3.5 Chloride 109 H Carbon Dioxide 21 L Anion Gap 16 BUN 40 H Creatinine 2.33 H Estim Creat Clear Calc 31.5 Estimated GFR 28 POC Glucose 245 H Random Glucose 246 H Calcium 8.2 L Phosphorus 3.7 Magnesium 1.9 Albumin 2.9 L Triglycerides 177 Discharge Plan Discharge Anticipated Discharge Date/Time: 06/03/22 10:39 Patient Disposition: Xfer Acute Care Hospital Discharge Diagnosis: sbo, jovanny on ckd Referrals: Millie Armas MD [Primary Care Provider] - 1 Week Discharge Medications: Continued tamsulosin 0.4 mg capsule 1 cap PO BEDTIME amlodipine 10 mg tablet 1 tab PO DAILY omeprazole 20 mg capsule,delayed release(DR/EC) 1 cap PO DAILY@0630 ergocalciferol (vitamin D2) 1,250 mcg (50,000 unit) capsule 1 cap PO TH@0900 tacrolimus 1 mg capsule 1 cap PO BID metoprolol tartrate 25 mg tablet 1 tab PO BID Held insulin glargine [Lantus Solostar U-100 Insulin] 100 unit/mL (3 mL) insulin pen 24 unit subcut BID Hold Instructions: Resume on 06/03/22. Trulicity 0.75 mg/0.5 mL pen injector 0.75 mg subcut MEJIAS@0900 Hold Instructions: Resume on 06/03/22. Discharge Orders: Discharge Order (Routine); Ordered 06/03/22 Ordered By: Becka David Diet: npo Activity on Discharge: As tolerated Stand Alone Forms: Patient Portal Discharge page Care Plan Goals: Colon mass work up Health Concerns: colon mass concern for malingnancy Plan of Treatment: Transfer to [facility] for possibl surgical exploration Assessment: as above Discharge Date/Time: 06/03/22 09:22
== END 2022-06-03 09:22 | disposition short-term general hospital (02) | DRG 375 ==
LOC: HO.ED 16:58 → HO.EDOVER 22:42 → HO.S3 05-25 08:00
PROVIDERS: Internal Medicine; Admitting Provider Internal Medicine; Emergency Provider Internal Medicine; PCP Internal Medicine; Visit Provider Internal Medicine
DX: C18.2 Malignant neoplasm of ascending colon (principal); D84.821 Immunodeficiency due to drugs; Z94.4 Liver transplant status; N17.9 Acute kidney failure, unspecified; E87.21 Acute metabolic acidosis; F10.11 Alcohol abuse, in remission; K21.9 Gastro-esophageal reflux disease without esophagitis; N40.0 Benign prostatic hyperplasia without lower urinary tract symptoms; M79.81 Nontraumatic hematoma of soft tissue; N14.19 Nephropathy induced by other drugs, medicaments and biological substances; I12.9 Hypertensive chronic kidney disease with stage 1 through stage 4 chronic kidney disease, or unspecified chronic kidney disease; N18.30 Chronic kidney disease, stage 3 unspecified; E11.22 Type 2 diabetes mellitus with diabetic chronic kidney disease; Z87.891 Personal history of nicotine dependence; Z79.4 Long term (current) use of insulin; Z79.621 Long term (current) use of calcineurin inhibitor; Z79.899 Other long term (current) drug therapy
CPT/HCPCS: 36415; 71045; 74018; 74176; 74270; 80048; 80053; 80197; 81001; 82040; 82947; 83605; 83690; 83735; 84100; 84478; 85025; 85027; 85610; 87040; 87635; 99285; J1643; J2270; J2405; J2543